=== PATIENT | female | born 1950 | race Caucasian/White ===

== ENCOUNTER → 2016-06-06 | Outpatient (CLI) | payer MEDICARE | LOC: RAD 07:52 | PROVIDERS: ATTEND Internal Medicine Gastroenterology | DX: D50.9 Iron deficiency anemia, unspecified (principal) | CPT/HCPCS: 74250 ==

== ENCOUNTER → 2017-07-05 | Outpatient (CLI) | payer MEDICARE, MEDICAID ==
--- NOTE | 2017-07-05 08:39 | RADIOLOGY REPORT (SQ) ---
EXAM DESCRIPTION: CT CHEST WITH; CT ABD/PELVIS WITH IV ORAL COMPLETED DATE/TIME: 07/05/2017 8:11 am REASON FOR STUDY: COLON CA (C18.9) C18.9 MALIGNANT NEOPLASM OF COLON, UNSPECIFIED COMPARISON: SMALL BOWEL SERIES 06/06/2016 CONTRAST TYPE AND DOSE: contrast/concentration: Isovue 370.00 mg/ml; Total Contrast Delivered: 72.0 ml; Total Saline Delivered: 66.0 ml RENAL FUNCTION: Creatinine 0.8 TECHNIQUE: CT scan of the chest performed using helical scanning technique with dynamic intravenous contrast injection. Images reviewed with lung, soft tissue and bone windows. Reconstructed coronal a nd sagittal MPR images reviewed. All images stored on PACS. CT scan of the abdomen and pelvis performed with intravenous and with oral contrastusing helical scan erin technique with dynamic intravenous contrast injection. Images reviewed with lung, soft tissue a nd bone windows. Reconstructed coronal and sagittal MPR images reviewed. Delayed images for evaluat ion of the urinary system also acquired and evaluated. All images stored on PACS. All CT scanners at this facility use dose modulation, iterative reconstruction, and/or weight based d osing when appropriate to reduce radiation dose to as low as reasonably achievable (ALARA). [facility]: Dose Right [facility]: CareDose [facility]: Dose Right [facility]: Teradose 4D [facility]: [employer] RADIATION DOSE: CT Rad equipment meets quality standard of care and radiation dose reduction techniq ues were employed. CTDIvol: 4.6 - 6.5 mGy. DLP: 812 mGy-cm. . LIMITATIONS: None. FINDINGS: CHEST: LUNGS AND PLEURA: Old surgical marisol along the superolateral aspect of the left major fissure. No pulmonary nodules. No acute infiltrates. No pleural effusion. No pneumothorax. HILAR AND MEDIASTINAL STRUCTURES: No identified masses or abnormal nodes. HEART AND VASCULAR STRUCTURES: No aneurysm or dissection. No central pulmonary emboli. No pericardi al effusion. HARDWARE: None. THYROID AND OTHER SOFT TISSUES: No masses. No adenopathy. BONES: No significant finding. OTHER: No other significant finding. ABDOMEN AND PELVIS: LIVER: Normal size. No masses. No dilated ducts. SPLEEN: Normal size. No focal lesions. PANCREAS: No masses. No significant calcifications. No adjacent inflammation or peripancreatic fluid collections. Pancreatic duct not dilated. GALLBLADDER: Surgically absent ADRENAL GLANDS: No significant masses or asymmetry. RIGHT KIDNEY AND URETER: No solid masses. No significant calcification. No hydronephrosis or hydroure ter. LEFT KIDNEY AND URETER: No solid masses. No significant calcification. No hydronephrosis or hydrouret er. AORTA AND VESSELS: No aneurysm. No dissection. Renal arteries, SMA, celiac without stenosis. RETROPERITONEUM: No retroperitoneal adenopathy, hemorrhage or masses. BOWEL AND PERITONEAL CAVITY: No masses or inflammatory changes. No free fluid or peritoneal masses. Post right hemicolectomy. No CT evidence of bowel obstruction. Few descending and sigmoid colon div erticuli without CT signs of acute diverticulitis APPENDIX: Surgically absent ABDOMINAL WALL: No masses. No hernias. PELVIS: No mass or free fluid. Normal bladder. Normal size female pelvic organs BONES: Lumbar fusion with hardware at L3-4 and L5-S1 OTHER: No other significant finding. IMPRESSION: No CT evidence of metastatic disease to the chest abdomen or pelvis given history of col on cancer TECHNICAL DOCUMENTATION: JOB ID: [id number] Quality ID # [id number]: Final reports with documentation of one or more dose reduction techniques (e.g., Au tomated exposure control, adjustment of the mA and/or kV according to patient size, use of iterative reconstruction technique) 2010 [employer]- All Rights Reserved
== END ==
LOC: RAD 07:22
PROVIDERS: ATTEND Physician Assistant Medical
DX: C18.9 Malignant neoplasm of colon, unspecified (principal)
CPT/HCPCS: 71260; 74177; 82565

== ENCOUNTER → 2018-06-12 | Outpatient (CLI) | payer MEDICARE, MEDICAID ==
--- NOTE | 2018-06-12 09:38 | RADIOLOGY REPORT (SQ) ---
EXAM DESCRIPTION: CT LUNG CANCER SCREENING COMPLETED DATE/TIME: 06/12/2018 8:46 am REASON FOR STUDY: PERSONAL HX OF NICOTINE DEPENDENCE (Z87.891) Z87.891 PERSONAL HISTORY OF NICOTINE DEPENDENCE Has the patient had a Chest CT scan within the past year? Was the patient offered tobacco cessation counseling? Was the patient engaged in shared decision making for this test? Does the patient have signs or symptoms of Lung Cancer? Is the patient a smoker? How many packs per year? How many years since quitting smoking? Patients age: COMPARISON: None. TECHNIQUE: Low Dose CT scan performed of the chest without intravenous contrast for purposes of scre ening for lung cancer. Images reviewed with lung, soft tissue and bone windows. Reconstructed coron al and sagittal MPR images reviewed. All images stored on PACS. All CT scanners at this facility use dose modulation, iterative reconstruction, and/or weight based d osing when appropriate to reduce radiation dose to as low as reasonably achievable (ALARA). [facility]: Dose Right [facility]: CareDose [facility]: Dose Right [facility]: Teradose 4D [facility]: [employer] RADIATION DOSE: CT Rad equipment meets quality standard of care and radiation dose reduction techniq ues were employed. CTDIvol: 1.9 mGy. DLP: 73 mGy-cm. mGy. . LIMITATIONS: None FINDINGS: LUNGS AND PLEURA: No masses or nodules. No pleural effusions or calcifications. No pne umothorax. Calcified granulomas along the left major fissure staple line. HILAR AND MEDIASTINAL STRUCTURES: No identified masses. No abnormal nodes. HEART AND VASCULAR STRUCTURES: No aortic aneurysm. No pericardial effusion. No cardiac devices. CORONARY ARTERY CALCIFICATIONS: Marked calcifications. UPPER ABDOMEN, THYROID, BONES, OTHER SOFT TISSUES: No significant findings. IMPRESSION: NO SIGNIFICANT FINDING IN THE LUNGS ON NON-CONTRASTED CHEST CT. OTHER FINDINGS ABOVE. LUNGRADS: LUNGRADS: 1 NEGATIVE. NO NODULES, OR DEFINITELY BENIGN NODULES MODIFIER: NONE RECOMMENDATION: Continue annual screening with LDCT in 12 months. COMMENT: CRITERIA: No lung nodules. Nodules with specific calcifications: Complete, central, popcorn, concentric rings and fat containin g nodules. TECHNICAL DOCUMENTATION: JOB ID: [id number] Quality ID # [id number]: Final reports with documentation of one or more dose reduction techniques (e.g., Au tomated exposure control, adjustment of the mA and/or kV according to patient size, use of iterative reconstruction technique) 2010 [facility] Radiology Reading location - IP/workstation name: [email or web address]
== END ==
LOC: RAD 08:31
PROVIDERS: ATTEND Internal Medicine
DX: Z12.2 Encounter for screening for malignant neoplasm of respiratory organs (principal); Z87.891 Personal history of nicotine dependence; J84.10 Pulmonary fibrosis, unspecified; I25.10 Atherosclerotic heart disease of native coronary artery without angina pectoris
CPT/HCPCS: G0297

== ENCOUNTER 2018-08-11 12:19 | Emergency (ER) | payer MEDICARE, MEDICAID ==
[2018-08-11] MEDS ORDERED: KETOROLAC TROMETHAMINE INJ/PF 30 MG/1 ML SDV IV ONE (14:23)
--- NOTE | 2018-08-11 15:13 | ER Document Report ---
Doctor's Note Notes: 08/11/18 15:11 I was asked to see this patient in consultation. In summary this is a 67-year-old female with multiple lower back surgeries with a history of back pain intermittently for around 20 years. Patient started to have some increased left lower back pain around 2 days ago. No trauma or falls. Some radiation tri n the left lower leg. No fevers, incontinence, vomiting, or weakness to the legs. Patient denies any and all abdominal pain. Patient did report this to her doctor who saw and evaluated her and supposedly the patient had an MRI of her lumbar spine within the last 48 hours. She does not know the results. On examination the patient is laying on her right side in no acute distress. Patient has no midline lower back tenderness, swelling, erythema, or induration. Patient has some tenderness to the left lower buttocks causing radiation down her leg. No swelling or erythema noted. 2+ patellar reflexes with excellent distal strength, capillary refill, and sensation. Patient has no abdominal tenderness to deep palpation of all 4 quadrants of the abdomen including the left lower quadrant. No palpable masses or abdominal bruits present. Given the above history and physical examination I do believe acute spinal cord compression, discitis, epidural abscess, AAA, all to be extremely unlikely. I do believe that the patient most likely has sciatic-like pain. Patient is not a diabetic. No adverse reaction to steroids. Patient does have a specialist for follow-up. We will attempt to find the patient's MRI and will most likely start the patient on a steroid course with strict return precautions and follow-up with the primary care physician and specialist.
--- NOTE | 2018-08-11 15:44 | ER Document Report ---
ED General - General Chief Complaint: Back Pain Stated Complaint: BACK/LEG PAIN Time Seen by Provider: 08/11/18 13:02 Primary Care Provider: RAJEEV BARLOW MD [Primary Care Provider] - Follow up as needed Notes: 67-year-old female with multiple lower back surgeries with a history of back pain intermittently for around 20 years. Patient started to have some increased left lower back pain around 2 days ago. No trauma or falls. Some radiation down the left lower leg. No fevers, incontinence, vomiting, or weakness to the legs. Patient denies any and all abdominal pain. Patient did report this to her doctor who saw and evaluated her and the patient had an MRI of her lumbar spine within the last 48 hours. She does not know the results. TRAVEL OUTSIDE OF THE [place] IN LAST 30 DAYS: No - Related Data Allergies/Adverse Reactions: codeine Allergy (Verified 08/11/18 12:19) Past Medical History - Social History Smoking Status: Unknown if Ever Smoked Family History: None Patient has suicidal ideation: No Patient has homicidal ideation: No - Past Medical History Cardiac Medical History: Reports: Hx Hypercholesterolemia Renal/ Medical History: Denies: Hx Peritoneal Dialysis Past Surgical History: Reports: Hx Appendectomy, Hx Cholecystectomy Review of Systems - Review of Systems Constitutional: See HPI EENT: No symptoms reported Cardiovascular: See HPI Respiratory: See HPI Gastrointestinal: No symptoms reported Genitourinary: No symptoms reported Female Genitourinary: No symptoms reported Musculoskeletal: See HPI Skin: No symptoms reported Hematologic/Lymphatic: No symptoms reported Neurological/Psychological: See HPI Physical Exam - Vital signs Vitals: Temp Pulse Resp BP Pulse Ox 97.9 F 69 16 104/56 L 98 08/11/18 12:25 08/11/18 12:25 08/11/18 12:25 08/11/18 12:25 08/11/18 12:25 - Notes Notes: PHYSICAL EXAMINATION: Reviewed vital signs and charting by RN GENERAL: Alert, interacts well. No acute distress. HEAD: Normocephalic, atraumatic. EYES: Pupils equal, round. Extraocular movements intact. NECK: Full range of motion. Supple. Trachea midline. LUNGS: Clear to auscultation bilaterally, no wheezes, rales, or rhonchi. No respiratory distress. HEART: Regular rate and rhythm. No murmur ABDOMEN: soft, non-tender. Non-distended. Bowel sounds present in all 4 quadrants. no McBurney's point tenderness, no Justice sign. EXTREMITIES: Moves all 4 extremities spontaneously. No edema, No cyanosis. BACK: no cervical, thoracic, lumbar midline tenderness. No saddle anesthesia, normal distal neurovascular exam. Some point tenderness along the left SI joint but unable to reproduce any radicular pain NEUROLOGICAL: Alert and oriented x3. Normal speech. PSYCH: Normal affect, normal mood. SKIN: Warm, dry, normal turgor. No rashes or lesions noted. Course - Re-evaluation Re-evalutation: 08/11/18 15:43 I do believe acute spinal cord compression, discitis, epidural abscess, or AAA. 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 Patient with no urinary retention, bowel incontinence, fevers or any infectious symptoms. Patient does have a specialist for follow-up. - Vital Signs Vital signs: Temp Pulse Resp BP Pulse Ox 97.9 F 69 16 104/56 L 98 08/11/18 12:25 08/11/18 12:25 08/11/18 12:25 08/11/18 12:25 08/11/18 12:25 Discharge - Discharge Clinical Impression: Lower back pain Qualifiers: Chronicity: acute Back pain laterality: left Sciatica presence: with sciatica Sciatica laterality: sciatica of left side Qualified Code(s): M54.42 - Lumbago with sciatica, left side Condition: Good Disposition: HOME, SELF-CARE Instructions: Ice Packs ([facility]), Low Back Pain ([facility]), Warm Packs ([facility]) Additional Instructions: You have been seen in the Emergency Department (ED) today for back pain. You should also purchase a local lidocaine cream such as "aspercreme with lidocaine" and use per bottle instructions to the affected area. Apply heat to the area as often as you are able. Continue to keep active and avoid prolonged periods of bed rest. Please follow up with your doctor as soon as possible regarding today's ED visit and your back pain. Return to the ED for worsening back pain, fever, weakness or numbness of either leg, or if you develop either (1) an inability to urinate or have bowel movements, or (2) loss of your ability to control your bathroom functions (if you start having "accidents"), or if you develop other new symptoms that concern you.concern you. Referrals: RAJEEV BARLOW MD [Primary Care Provider] - Follow up as needed
[2018-08-11] MEDS ORDERED: LIDOCAINE 5% (700 MG) TRANSDERMAL ADH..PATCH TP ONE (15:47)
[2018-08-11] MEDS ORDERED: PREDNISONE 20 MG TABLET PO ONE (15:48)
[2018-08-11 16:14] VITALS: BP 119/67
== END 2018-08-11 16:15 | disposition home or self-care (01) ==
LOC: ER 12:19
DX: M54.42 Lumbago with sciatica, left side (principal); Z98.890 Other specified postprocedural states; Z88.5 Allergy status to narcotic agent
CPT/HCPCS: 99283; 96374; J1885; A9270; J7512

== ENCOUNTER 2019-06-20 14:19 | Emergency (ER) | payer MEDICARE, MEDICAID ==
[2019-06-20] MEDS ORDERED: KETOROLAC TROMETHAMINE INJ/PF 30 MG/1 ML SDV IV ONE (15:09)
[2019-06-20] MEDS ORDERED: ONDANSETRON HCL INJ/PF 4 MG/2 ML SDV IV ONE (15:09)
[2019-06-20] MEDS ORDERED: NORMAL SALINE 1000 ML 1,000 ML IV ONE ×2 (15:10→19:41)
[2019-06-20 15:40] LABS: ABSOLUTE LYMPHOCYTES (AUTO) 1.9 10^3/uL (0.5-4.7); ABSOLUTE MONOCYTES (AUTO) 0.4 10^3/uL (0.1-1.4); ABSOLUTE NEUT (AUTO) 5.7 10^3/uL (1.7-8.2); BASOPHILS % (AUTO) 0.4 % (0-2); EOSINOPHILS % (AUTO) 0.4 % (0-6); HEMOGLOBIN 15.2 g/dL (12.0-15.5); LYMPHOCYTES % (AUTO) 23.2 % (13-45); MEAN CORPUSCULAR HEMOGLOBIN 31.5 pg (27.0-33.4); MEAN CORPUSCULAR HGB CONC 35.4 g/dL (32.0-36.0); MEAN CORPUSCULAR VOLUME 89 fl (80-97); MONOCYTES % (AUTO) 4.8 % (3-13); PLATELET COUNT 255 10^3/uL (150-450); RED BLOOD COUNT 4.83 10^6/uL (3.72-5.28); RED CELL DISTRIBUTION WIDTH 12.9 % (11.5-14.0); SEGMENTED NEUTROPHILS % (AUTO) 71.2 % (42-78); TOTAL CELLS COUNTED % (AUTO) 100 %
[2019-06-20 16:00] LABS: ALBUMIN 4.2 g/dL (3.5-5.0); ALKALINE PHOSPHATASE 87 U/L (38-126); ANION GAP 7 (5-19); ASPARTATE AMINO TRANSFERASE 37 U/L (14-36); BILIRUBIN,DIRECT 0.1 mg/dL (0.0-0.4); BILIRUBIN,TOTAL 0.5 mg/dL (0.2-1.3); BLOOD UREA NITROGEN 13 mg/dL (7-20); CALCIUM 9.6 mg/dL (8.4-10.2); CARBON DIOXIDE 25 mmol/L (22-30); CHLORIDE 104 mmol/L (98-107); GLUCOSE 83 mg/dL (75-110); POTASSIUM 4.1 mmol/L (3.6-5.0); TOTAL PROTEIN 8.3 g/dL (6.3-8.2)
[2019-06-20 16:33] LABS: APPEARANCE,URINE CLEAR; BILIRUBIN,URINE NEGATIVE (NEGATIVE); COLOR,URINE YELLOW; GLUCOSE, URINE NEGATIVE (NEGATIVE); KETONES,URINE TRACE mg/dL (NEGATIVE); LEUKOCYTE ESTERASE,URINE SMALL (NEGATIVE); NITRITE,URINE NEGATIVE (NEGATIVE); PROTEIN,URINE NEGATIVE (NEGATIVE); URINE SPECIFIC GRAVITY 1.009; UROBILINOGEN,URINE NEGATIVE mg/dL (<2.0)
--- NOTE | 2019-06-20 16:52 | ER Document Report ---
ED Medical Screen (RME) - General Mode of Arrival: Ambulatory Information source: Patient TRAVEL OUTSIDE OF THE [place] IN LAST 30 DAYS: No - Related Data Home Medications: Plavix 75mg daily. Altace 2.5mg daily. Zocor 40mg daily. Om eprazole 40mg daily. Aspirin 81mg daily. Vitamin d3 1000 iu daily. Ventolin 90 mcg as needed. Albuterol 1.5mg as needed. Percocet 5/325mg QID PRN. Gabapentin 600 mg QID PRN. Baclofen 10mg TID PRN <KAYLIN LEE - Last Filed: 06/20/19 15:11> <GOPI WILL JR - Last Filed: 06/20/19 18:26> - General Chief Complaint: Abdominal Pain Stated Complaint: WEAKNESS,HEADACHE,ABDOMINAL PAIN,VOMITING Time Seen by Provider: 06/20/19 15:03 Primary Care Provider: RAJEEV BARLOW MD [Primary Care Provider] - Follow up as needed Notes: 68-year-old female patient presenting to the emergency department with complaints of dizziness, abdominal pain, vomiting. Patient reports symptoms ongoing for the last 2 days. She denies any chest pain or shortness of breath. Reports history of diverticulitis. (KAYLIN LEE) - Related Data Allergies/Adverse Reactions: codeine Adverse Reaction (Verified 06/20/19 15:02) Past Medical History - Social History Chew tobacco use (# tins/day): No Frequency of alcohol use: None Drug Abuse: None - Past Medical History Cardiac Medical History: Reports: Hx Hypercholesterolemia Renal/ Medical History: Denies: Hx Peritoneal Dialysis Past Surgical History: Reports: Hx Appendectomy, Hx Cholecystectomy <KAYLIN LEE - Last Filed: 06/20/19 15:11> Physical Exam - Vital signs Vitals: Temp Pulse Resp BP Pulse Ox 98.3 F 81 16 120/60 96 06/20/19 14:32 06/20/19 14:32 06/20/19 14:32 06/20/19 14:32 06/20/19 14:32 Course - Laboratory Result Diagrams: 06/20/19 15:18 06/20/19 15:18 <GPOI WILL JR - Last Filed: 06/20/19 18:26> - Vital Signs Vital signs: Temp Pulse Resp BP Pulse Ox 98.3 F 81 16 120/60 96 06/20/19 14:32 06/20/19 14:32 06/20/19 14:32 06/20/19 14:32 06/20/19 14:32 - Laboratory Laboratory results interpreted by me: 06/20/19 06/20/19 15:18 15:18 Sodium 135.9 L AST 37 H Total Protein 8.3 H Urine Ketones TRACE H Urine Blood LARGE H Ur Leukocyte Esterase SMALL H Doctor's Discharge <KAYLIN LEE - Last Filed: 06/20/19 15:11> <GOPI WILL JR - Last Filed: 06/20/19 18:26> - Discharge Referrals: RAJEEV BARLOW MD [Primary Care Provider] - Follow up as needed
[2019-06-20] MEDS ORDERED: KETOROLAC TROMETHAMINE INJ/PF 30 MG/1 ML SDV ONE (18:12)
[2019-06-20] MEDS ORDERED: ONDANSETRON HCL INJ/PF 4 MG/2 ML SDV ONE (18:12)
--- NOTE | 2019-06-20 19:04 | ER Document Report ---
ED General - General Chief Complaint: Abdominal Pain Stated Complaint: WEAKNESS,HEADACHE,ABDOMINAL PAIN,VOMITING Time Seen by Provider: 06/20/19 15:03 Primary Care Provider: RAJEEV BARLOW MD [Primary Care Provider] - Follow up as needed Mode of Arrival: Ambulatory Notes: 68-year-old female with chief complaint of dizziness nausea vomiting for 2 days. Last had a flareup of diverticulitis 5 to 6 years ago. Patient has only had broth for p.o. intake over 24 hours. Patient has been taking Percocet for pain with out resolution of her bilateral lower quadrant abdominal pain. Her daughter also was a good spokesperson and patient is a good historian as well. Patient has not been eating any seedy foods and has been eating peanut butter sandwiches. He denies any trauma or diarrhea or constipation TRAVEL OUTSIDE OF THE [place] IN LAST 30 DAYS: No - HPI Onset: Other - 2 days Onset/Duration: Sudden Quality of pain: Achy Severity: Mild Pain Level: 1 Exacerbated by: Movement Similar symptoms previously: Yes Recently seen / treated by doctor: No - Related Data Allergies/Adverse Reactions: codeine Adverse Reaction (Verified 06/20/19 15:02) Home Medications: Plavix 75mg daily. Altace 2.5mg daily. Zocor 40mg daily. Omeprazole 40mg daily. Aspirin 81mg daily. Vitamin d3 1000 iu daily. Ventolin 90 mcg as needed. Albuterol 1.5mg as needed. Percocet 5/325mg QID PRN. Gabap entin 600 mg QID PRN. Baclofen 10mg TID PRN Past Medical History - General Information source: Patient - Social History Smoking Status: Current Every Day Smoker Chew tobacco use (# tins/day): No Frequency of alcohol use: None Drug Abuse: None Family History: None Patient has suicidal ideation: No Patient has homicidal ideation: No - Past Medical History Cardiac Medical History: Reports: Hx Hypercholesterolemia Renal/ Medical History: Denies: Hx Peritoneal Dialysis Past Surgical History: Reports: Hx Appendectomy, Hx Cholecystectomy Review of Systems - Review of Systems Constitutional: Malaise EENT: No symptoms reported Cardiovascular: No symptoms reported Respiratory: No symptoms reported Gastrointestinal: Abdominal pain, Nausea, Vomiting Female Genitourinary: No symptoms reported Musculoskeletal: No symptoms reported Skin: No symptoms reported Hematologic/Lymphatic: No symptoms reported Physical Exam - Vital signs Vitals: Temp Pulse Resp BP Pulse Ox 98.3 F 81 16 120/60 96 06/20/19 14:32 06/20/19 14:32 06/20/19 14:32 06/20/19 14:32 06/20/19 14:32 Interpretation: Normal - General General appearance: Alert In distress: Mild - General ectomorphic elderly appearing white female in no apparent distress laying in gurney after CT - HEENT Head: Normocephalic Eyes: Normal Conjunctiva: Normal Cornea: Normal Extraocular movements intact: Yes Eyelashes: Normal Pupils: PERRL Pharynx: Normal Neck: Normal - Respiratory Respiratory status: No respiratory distress Chest status: Nontender Breath sounds: Normal Chest palpation: Normal - Cardiovascular Rhythm: Regular Heart sounds: Normal auscultation Murmur: No Friction rub: No Rogelio's crunch: No - Abdominal Inspection: Normal Distension: No distension Bowel sounds: Hyperactive Tenderness: Tender - Right lower quadrant left lower quadrant abdomen on palpation Organomegaly: No organomegaly - Back Back: Normal - Extremities General upper extremity: Normal inspection General lower extremity: Normal inspection - Neurological Neuro grossly intact: Yes Cognition: Normal Orientation: AAOx4 Shad Coma Scale Eye Opening: Spontaneous Shad Coma Scale Verbal: Oriented Shad Coma Scale Motor: Obeys Commands [place] Coma Scale Total: 15 Speech: Normal Cranial nerves: Normal Cerebellar coordination: Normal - Psychological Associated symptoms: Normal affect - Skin Skin Temperature: Warm Skin Moisture: Dry Course - Vital Signs Vital signs: Temp Pulse Resp BP Pulse Ox 98.3 F 81 16 120/60 96 06/20/19 14:32 06/20/19 14:32 06/20/19 14:32 06/20/19 14:32 06/20/19 14:32 - Laboratory Result Diagrams: 06/20/19 15:18 06/20/19 15:18 Laboratory results interpreted by me: 06/20/19 06/20/19 15:18 15:18 Sodium 135.9 L AST 37 H Total Protein 8.3 H Urine Ketones TRACE H Urine Blood LARGE H Ur Leukocyte Esterase SMALL H - Diagnostic Test Radiology reviewed: Reports reviewed - No mention of diverticulitis but status post hemicolectomy otherwise within normal limits and postop back Critical Care Note - Critical Care Note Total time excluding time spent on procedures (mins): 60 Comments: Form patient and daughter of the findings of CT and labs. Prefers p.o. medicines rather than IV so she can get home to her who has dementia Discharge - Discharge Clinical Impression: Dehydration, Hemorrhagic cystitis Abdominal pain Qualifiers: Abdominal location: left lower quadrant Qualified Code(s): R10.32 - Left lower quadrant pain Condition: Fair Disposition: HOME, SELF-CARE Additional Instructions: Follow-up with personal doctor return to ER as needed take medicines as directed encourage fluids Prescriptions: Levofloxacin [Levaquin 750 mg Tablet] 750 mg PO DAILY #10 tablet Chlorzoxazone [Parafon Forte Dsc 500 Mg Tablet] 500 mg PO BID PRN #20 tablet PRN Reason: Referrals: RAJEEV BARLOW MD [Primary Care Provider] - Follow up as needed
--- NOTE | 2019-06-20 19:33 | RADIOLOGY REPORT (SQ) ---
EXAM DESCRIPTION: CT ABD/PELVIS WITH IV ONLY COMPLETED DATE/TIME: 06/20/2019 5:59 pm REASON FOR STUDY: pain in abd right and left lower quadrant pain. Previous appendectomy, cholecyste ctomy, and partial colectomy. COMPARISON: 07/05/2017 TECHNIQUE: CT scan of the abdomen and pelvis performed using helical scanning technique with dynamic intravenous contrast injection. No oral contrast. Images reviewed with lung, soft tissue, and bone windows. Reconstructed coronal and sagittal MPR images reviewed. Delayed images for evaluation of the urinary system also acquired. All images stored on PACS. All CT scanners at this facility use dose modulation, iterative reconstruction, and/or weight based d osing when appropriate to reduce radiation dose to as low as reasonably achievable (ALARA). [facility]: Dose Right [facility]: CareDose [facility]: Dose Right [facility]: Teradose 4D [facility]: [employer] CONTRAST TYPE AND DOSE: contrast/concentration: Isovue 350.00 mg/ml; Total Contrast Delivered: 69.0 ml; Total Saline Delivered: 65.0 ml RENAL FUNCTION: GFR > 60. RADIATION DOSE: CT Rad equipment meets quality standard of care and radiation dose reduction techniq ues were employed. CTDIvol: 5.3 - 7.0 mGy. DLP: 586 mGy-cm.. LIMITATIONS: None. FINDINGS: LOWER CHEST: No significant findings. No nodules or infiltrates. LIVER: Normal size. No masses. No dilated ducts. SPLEEN: Normal size. No focal lesions. PANCREAS: No masses. No significant calcifications. No adjacent inflammation or peripancreatic fluid collections. Pancreatic duct not dilated. GALLBLADDER: No identified stones by CT criteria. No inflammatory changes to suggest cholecystitis. ADRENAL GLANDS: No significant masses or asymmetry. RIGHT KIDNEY AND URETER: No solid masses. No significant calcifications. No hydronephrosis or hyd roureter. LEFT KIDNEY AND URETER: No solid masses. No significant calcifications. No hydronephrosis or hydr oureter. AORTA AND VESSELS: No aneurysm. No dissection. Renal arteries, SMA, celiac without stenosis. RETROPERITONEUM: No retroperitoneal adenopathy, hemorrhage or masses. BOWEL AND PERITONEAL CAVITY: Status post right hemicolectomy. No bowel obstruction. No bowel wall t hickening or significant inflammatory change. APPENDIX: Normal. PELVIS: No mass. No free fluid. Normal bladder. ABDOMINAL WALL: No masses. No hernias. BONES: Postoperative changes in the lumbar spine and sacrum. No suspicious bone lesions. OTHER: No other significant finding. IMPRESSION: 1. Status post right hemicolectomy. No evidence of bowel obstruction. 2. Postoperative changes in the lumbar spine. TECHNICAL DOCUMENTATION: JOB ID: [id number] Quality ID # [id number]: Final reports with documentation of one or more dose reduction techniques (e.g., Au tomated exposure control, adjustment of the mA and/or kV according to patient size, use of iterative reconstruction technique) 2010 [employer]- All Rights Reserved Reading location - IP/workstation name: [email or web address]
[2019-06-20] MEDS ORDERED: LEVOFLOXACIN 750 MG/D5W RTU 750 MG/150 ML RTUPB IV ONE (19:41)
[2019-06-20] MEDS ORDERED: DEXAMETHASONE SOD PHOS INJ 10 MG/1 ML VIAL IV ONE (19:41)
[2019-06-20] MEDS ORDERED: LEVOFLOXACIN 750 MG TABLET PO ONE (20:57)
[2019-06-20 21:12] VITALS: BP 121/74
== END 2019-06-20 21:12 | disposition home or self-care (01) ==
LOC: ER 14:19
DX: N30.90 Cystitis, unspecified without hematuria (principal); E86.0 Dehydration; R10.32 Left lower quadrant pain; R10.31 Right lower quadrant pain; R10.813 Right lower quadrant abdominal tenderness; R10.814 Left lower quadrant abdominal tenderness; R42 Dizziness and giddiness; R11.2 Nausea with vomiting, unspecified; R53.81 Other malaise; F17.200 Nicotine dependence, unspecified, uncomplicated; E78.00 Pure hypercholesterolemia, unspecified; Z79.899 Other long term (current) drug therapy; Z79.01 Long term (current) use of anticoagulants; Z79.82 Long term (current) use of aspirin; Z87.19 Personal history of other diseases of the digestive system; Z90.49 Acquired absence of other specified parts of digestive tract
CPT/HCPCS: 99285; 96361; 96375; 96365; 36415; 83690; 85025; 80053; 81001; 74177; J1885; J7030; J1100; A9270; J1956

== ENCOUNTER → 2019-10-24 | Outpatient (CLI) | payer MEDICARE, MEDICAID ==
--- NOTE | 2019-10-24 09:52 | RADIOLOGY REPORT (SQ) ---
EXAM DESCRIPTION: CT LUNG CANCER SCREENING IMAGES COMPLETED DATE/TIME: 10/24/2019 9:38 am REASON FOR STUDY: Z87.891 PERSONAL HISTORY OF NICOTINE DEPENDENCE Z87.891 PERSONAL HISTORY OF NICOT INE DEPENDENCE Has the patient had a Chest CT scan within the past year? N Was the patient offered tobacco cessation counseling? Y Was the patient engaged in shared decision making for this test? Y Does the patient have signs or symptoms of Lung Cancer? N Is the patient a smoker? Y How many pack years? 50 How many years since quitting smoking? 0 Patients age: 69 COMPARISON: 06/12/2018 and 07/05/2017. TECHNIQUE: Low Dose CT scan performed of the chest without intravenous contrast for purposes of scre ening for lung cancer. Images reviewed with lung, soft tissue and bone windows. Reconstructed coron al and sagittal MPR images reviewed. All images stored on PACS. All CT scanners at this facility use dose modulation, iterative reconstruction, and/or weight based d osing when appropriate to reduce radiation dose to as low as reasonably achievable (ALARA). [facility]: Dose Right [facility]: CareDose [facility]: Dose Right [facility]: Teradose 4D [facility]: LOSC Management RADIATION DOSE: CT Rad equipment meets quality standard of care and radiation dose reduction techniq ues were employed. CTDIvol: 1.9 mGy. DLP: 73 mGy-cm. mGy. . LIMITATIONS: None FINDINGS: LUNGS AND PLEURA: No masses or nodules. No pleural effusions or calcifications. No pne umothorax. Surgical changes in the left breast. Mild chronic scarring. HILAR AND MEDIASTINAL STRUCTURES: No identified masses. No abnormal nodes. HEART AND VASCULAR STRUCTURES: No aortic aneurysm. No pericardial effusion. No cardiac devices. CORONARY ARTERY CALCIFICATIONS: Marked calcifications. UPPER ABDOMEN, THYROID, BONES, OTHER SOFT TISSUES: No significant findings. IMPRESSION: NO SIGNIFICANT FINDING IN THE LUNGS ON NON-CONTRASTED CHEST CT. NO OTHER CLINICALLY SIGNIFICANT/POTENTIALLY CLINICALLY SIGNIFICANT FINDINGS LUNGRADS: LUNGRADS: 1 NEGATIVE. NO NODULES, OR DEFINITELY BENIGN NODULES MODIFIER: NONE RECOMMENDATION: Continue annual screening with LDCT in 12 months. COMMENT: CRITERIA: No lung nodules. Nodules with specific calcifications: Complete, central, popcorn, concentric rings and fat containin g nodules. TECHNICAL DOCUMENTATION: JOB ID: [id number] Quality ID # [id number]: Final reports with documentation of one or more dose reduction techniques (e.g., Au tomated exposure control, adjustment of the mA and/or kV according to patient size, use of iterative reconstruction technique) 2010 [facility] Radiology Reading location - IP/workstation name: [email or web address]
== END ==
LOC: RAD 09:16
PROVIDERS: ATTEND Physician Assistant Medical
DX: Z12.2 Encounter for screening for malignant neoplasm of respiratory organs (principal); Z09 Encounter for follow-up examination after completed treatment for conditions other than malignant neoplasm; Z87.891 Personal history of nicotine dependence; I25.10 Atherosclerotic heart disease of native coronary artery without angina pectoris
CPT/HCPCS: G0297

== ENCOUNTER → 2020-02-18 | Outpatient (CLI) | payer MEDICARE, MEDICAID ==
--- NOTE | 2020-02-18 08:48 | ST Modified Barium Swallow ---
Recommendation - Recommendations Recommendations: No swallowing deficits seen. 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 May benefit from pulmonology consult. 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 Patient reports having coughing spells during which she has significant difficulty breathing for approximately 1 year now, but worsening more recently. She reports that these can occur at any time, not exclusively related to meals or other PO intake. Patient reports that they start with a tickle in her throat, and can last from 1 minute to nearly 1 hour. Taking small sips of water can help alleviate symptoms. Patient reports that she has been seen by ENT, no structural abnormalities seen. Medications: omeprazole Allergies: codeine - Functional Status Prior Functional Status: INDEPENDENT: feeding - independent Current Functional Limitations: feeding - coughing episodes - Subjective Patient/caregiver goal(s): r/o struct. abnormality Cognitive-Linguistic Function: WNL Speech Intelligibility: WNL Current Nutritional Means: PO Current PO diet: Regular Current symptoms: Coughing Pain: Patient reports, 0/5 - Objective Assessment: Upright, Left Lateral - Food Trials Used Food trials used: Thin liquids, Pureed, Regular The patient: Was Able to Self Feed - Oral-Motor Skills Dentition: Partial Velo-pharyngeal function: Unremarkable Laryngeal Function: clear voicing - mild rough quality - Assessment Oral prep: Normal Labial closure: Adequate Leakage: None Mastication: Adequate Lingual Movement: Normal Oral stage: Normal for this Procedure - Pharyngeal Stage Initiation of Pharyngeal Stage Reflex: Normal Decreased laryngeal elevation: No Reduced pressure generation: No reduced tongue-based retraction: No Pre-swallow pooling in valleculae: None Pre-Swallow pooling in pyriforms: None Reduced Thyro-Hyoid approximation: No Reduced epiglottic excursion: No Reduced pharyngeal peristalsis/contraction: No Post-swallow residulas vallecular: None Post-Swallow residuals in pyriforms: None Post-Swallow Residuals: tongue-base - mild, cleared easily Reduced Cricopharyngeal opening: No - Fall Risk Assessment Medications/Conditions that increase fall risks include: Antidepressants, sedatives, anti-arrhythmic, diuretic, benzodiazipenes, neuroleptics. BP regulation problems, cardiac problems, balance or gait deficits, neurological problems. Is patient considered at risk for falls: no Fall Risk Actions Taken: No action needed - Behavioral Observations During evaluation process patient: was cooperative, provided medical history - Treatment / Educational Needs: Treatment/Education Needs: Treatment consisted of patient education on the role of the Speech Pathologist. Patient's plan of care and golas were communicated as well as scheduling and attendance policies. Recommendations for initial home program were shared. Patient demonstrated understanding and verbalized agreement. - Impression/Summary Laryngeal Penetration: No Tracheal Aspiration: no Patient presents with: Normal swallow at eval Risk of Aspiration: Minimal Evaluation and Findings: No oral or pharyngeal swallowing deficits seen, no airway compromise observed with swallowing. Patient does report symptoms that may be related to a vocal fold dysfunction (throat irritation leading to coughing, wheezing on inhalation, poor tolerance of fragrance). May wish to follow up with ENT and pulmonology. - Recommendations Solid diet recommendations: Regular Liquid Diet Modification: Thin Pt/Family education and followup with MD: Yes Dysphagia therapy with CLAIMS VICE PRESIDENT: no Reflux Precautions: Taught to Patient Recommended techniques: Fully Upright During Meal Information, Precautions and Recommendations: Patient (Written), Patient (Verbal), Family Member (Written), Family Member (Verbal) - Time Total Time: 30 - Plan of Care Strategies to optimize patient understanding include:: ongoing assessment of educational needs, implementation of educational strategies, and re-education. - - -: Thank you for the opportunity to work with this patient and his/her family. Should you have any questions about this patient's plan or progress, I can be reached at [phone].
--- NOTE | 2020-02-18 10:48 | RADIOLOGY REPORT (SQ) ---
EXAM DESCRIPTION: COOKIE SWALLOW IMAGES COMPLETED DATE/TIME: 02/18/2020 8:42 am REASON FOR STUDY: R13.10 DYSPHAGIA, UNSPECIFIED R13.10 DYSPHAGIA, UNSPECIFIED R93.3 ABNORMAL FINDI NGS ON DX IMAGING OF PRT DIGESTIVE TRACT COMPARISON: None. TECHNIQUE: Videofluoroscopic swallowing examination was performed in conjunction with speech patholo gy. Videofluoroscopic imaging was obtained and reviewed and these are the findings: RADIATION DOSE: Fluoro time 2.1 minutes 1 images saved to PACS. LIMITATIONS: None FINDINGS: The patient was brought into the fluoro room and placed upright on a modified barium swall ow chair. The patient was then given multiple consistencies mixed with barium to swallow under live fluoroscopic video guidance. According to the Speech Pathologist there was no penetration or aspirat ion. Please refer to the speech pathology report for further details. IMPRESSION: NO EVIDENCE OF PENETRATION OR ASPIRATION. PLEASE SEE SPEECH PATHOLOGIST REPORT FOR OTHER FINDINGS AND RECOMMENDATIONS. COMMENT: None Quality ID [id number]: Final reports for procedures using fluoroscopy that document radiation exposure bg jian, or exposure time and number of fluorographic images (if radiation exposure indices are not avail able) TECHNICAL DOCUMENTATION: JOB ID: [id number] 2010 [employer]- All Rights Reserved Reading location - IP/workstation name: [email or web address] [id number]
== END ==
LOC: RAD 07:38
PROVIDERS: ATTEND Physician Assistant
DX: R13.10 Dysphagia, unspecified (principal); R93.3 Abnormal findings on diagnostic imaging of other parts of digestive tract; R93.2 Abnormal findings on diagnostic imaging of liver and biliary tract
CPT/HCPCS: 74230

== ENCOUNTER → 2020-06-18 | Outpatient (CLI) | payer MEDICARE, MEDICAID ==
--- OUTSIDE RECORDS SUMMARY | 2020-06-18 07:38 | XMS REPORT ---
:1950 [facility] [address] [address] Care Team Providers Name Role Phone Marlene Villalta Attending Clinician Unavailable Allergies, Adverse Reactions, Alerts Allergy Allergy Status Severity Reaction(s) Onset Inactive Treating C omments Name Type Date Date Clinician Codeine Allergy Active Sulfate to Drug (Ingredient (Finding) (s): codeine) Meclizine Allergy Active HCl to Drug (Finding) Medications Ordered Filled Start Stop Current Ordering Indication Dosage Frequency Signature Comments Components Medication Medication Date Date Medication? Clinician (SIG) Name Name Vitamin 2020-0 No 1000 Vitamin B-12 1-04 B-12 00:00: 00 Vitamin 2020-1 No 1000 Vitamin B-12 2-07 B-12 00:00: 00 Vitamin 2020-1 No 1000 Vitamin B-12 1-09 B-12 00:00: 00 Vitamin 2020-1 No 1000 Vitamin B-12 0-12 B-12 00:00: 00 Influenza 2020-1 2020- No .5mL QIV 0-12 10-12 00:00: 00:00 00 :00 Vitamin 2020-0 No 1000 Vitamin B-12 9-14 B-12 00:00: 00 Vitamin 2020-0 No 1000 Vitamin B-12 8-14 B-12 00:00: 00 Vitamin 2020-0 No 1000 Vitamin B-12 7-16 B-12 00:00: 00 Vitamin 2020-0 No 1000 Vitamin B-12 6-18 B-12 00:00: 00 Vitamin 2020-0 No 1000 Vitamin B-12 5-21 B-12 00:00: 00 Vitamin 2020-0 No 1000 Vitamin B-12 2-27 B-12 00:00: 00 Vitamin 2020-0 No 1000 Vitamin B-12 1-30 B-12 00:00: 00 Vitamin 2020-0 No 1000 Vitamin B-12 1-02 B-12 00:00: 00 Vitamin 2019-1 No 1000 Vitamin B-12 2-05 B-12 00:00: 00 Vitamin 2019-1 No 1000 Vitamin B-12 1-08 B-12 00:00: 00 Vitamin 2019-1 No 1000 Vitamin B-12 0-10 B-12 00:00: 00 Vitamin 2019-0 No 1000 Vitamin B-12 8-21 B-12 00:00: 00 Vitamin 2019-0 No 1000 Vitamin B-12 7-24 B-12 00:00: 00 Injectafer 2019-0 No 750mg Injectafer 7-24 00:00: 00 Sodium 2019-0 No 100mL Sodium Chloride 7-24 Chloride 00:00: 00 Sodium 2019-0 No 250mL Sodium Chloride 7-10 Chloride 00:00: 00 Injectafer 2019-0 2019- No 750mg Injectafer 7-10 07-24 00:00: 00:00 00 :00 Vitamin 2019-0 No 1000 Vitamin B-12 6-26 B-12 00:00: 00 Vitamin 2019-0 No 1000 Vitamin B-12 5-29 B-12 00:00: 00 Vitamin 2019-0 No 1000 Vitamin B-12 5-01 B-12 00:00: 00 Vitamin 2019-0 No 1000 Vitamin B-12 4-03 B-12 00:00: 00 Vitamin 2019-0 No 1000 Vitamin B-12 3-06 B-12 00:00: 00 Vitamin 2019-0 No 1000 Vitamin B-12 2-06 B-12 00:00: 00 Vitamin 2019-0 No 1000 Vitamin B-12 1-09 B-12 00:00: 00 Vitamin 2018-1 No 1000 Vitamin B-12 2-12 B-12 00:00: 00 Vitamin 2018-1 No 1000 Vitamin B-12 1-14 B-12 00:00: 00 Vitamin 2018-1 No 1000 Vitamin B-12 0-16 B-12 00:00: 00 Vitamin 2018-0 No 1000 Vitamin B-12 8-21 B-12 00:00: 00 Vitamin 2018-0 No 1000 Vitamin B-12 7-24 B-12 00:00: 00 Vitamin 2018-0 No 1000 Vitamin B-12 6-26 B-12 00:00: 00 Vitamin 2018-0 No 1000 Vitamin B-12 5-29 B-12 00:00: 00 Vitamin 2018-0 No 1000 Vitamin B-12 4-30 B-12 00:00: 00 Vitamin 2018-0 No 1000 Vitamin B-12 4-02 B-12 00:00: 00 Cyanocobala 2018-0 No 1000 Cyanocobal min 3-02 butler 00:00: 00 Cyanocobala 2018-0 No 1000 Cyanocobal min 3- butler 00:00: 00 Cyanocobala 2018-0 No 1000 Cyanocobal min 2-28 butler 00:00: 00 Cyanocobala 2018-0 No 1000 Cyanocobal min 2-27 butler 00:00: 00 Cyanocobala 2018-0 No 1000 Cyanocobal min 2-26 butler 00:00: 00 Cyanocobala 2018-0 No 1000 Cyanocobal min 2-23 butler 00:00: 00 Cyanocobala 2018-0 No 1000 Cyanocobal min 2-22 butler 00:00: 00 Cyanocobala 2018-0 No 1000 Cyanocobal min 2-21 butler 00:00: 00 Vitamin 2018-0 2021- No 1000 Vitamin B-12 2-20 - B-12 00:00: 00:00 00 :00 Cyanocobala 2018-0 2018- No 1000 Cyanocobal min 2-19 03-02 butler 00:00: 00:00 00 :00 Iron 2017-0 No 400mg Iron Dextran 3-10 Dextran 00:00: 00 Sodium 2017-0 No 30mL Sodium Chloride 3-10 Chloride 00:00: 00 Iron 2017-0 No 400mg Iron Dextran 3-03 Dextran 00:00: 00 Sodium 2017-0 No 30mL Sodium Chloride 3-03 Chloride 00:00: 00 Iron 2017-0 No 400mg Iron Dextran 2-24 Dextran 00:00: 00 Sodium 2017-0 No 30mL Sodium Chloride 2-24 Chloride 00:00: 00 Sodium 2017-0 No 70mL Sodium Chloride 2-15 Chloride 00:00: 00 Sodium 2017-0 2019- No 100mL Chloride 2-15 07-24 00:00: 00:00 00 :00 Iron 2017-0 2017- No 375mg Iron Dextran 2-15 03-10 Dextran 00:00: 00:00 00 :00 Albuterol Yes 1 Sulfate Aspirin No 1 Cholecalcif No 1 esme Clopidogrel Yes 1 Bisulfate Gabapentin Yes 1 Omeprazole Yes 1 Oxycodone-A Yes 1 cetaminophe n Ramipril Yes 1 Simvastatin Yes 1 busPIRone No 1 HCl Aspirin Yes 1 busPIRone Yes 1 HCl Cholecalcif Yes 1 esme B-12 2019- No 1 05- 10:08 :34 TiZANidine 2018- No 1 HCl 11-21 10:29 :31 Simvastatin 2017- No 1 07-03 14:27 :36 TiZANidine 2017- No 1 HCl 07-03 14:27 :27 Advair 2016- No 1 Diskus 06-21 10:33 :31 Albuterol 2016- No 2 Sulfate 06-21 10:33 :38 Gabapentin 2017- No 1 06-21 10:33 :43 Problems Condition Condition Condition Status Onset Resolution Last Treatin g Comments Name Details Category Date Date Treatment Clinician Date Patient Patient Diagnosis active 2019-05 encounter encounter 0-12 status status 00:00: 00 Cobalamin Cobalamin Diagnosis active deficiency deficiency 07-17 00:00: 00 Tobacco Tobacco Diagnosis active user user 07-07 00:00: 00 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6000 % 22.400 0-43.6000 MID% (test code = MID%) 5.4000 % 1.2000-11.2000 Neutrophils % (test code = Neutrophils %) 66.0000 % 48.900 0-69.9000 Lymphocytes (test code = Lymphocytes) 2.0000 1.2000-3.2 000 MID (test code = MID) 0.5000 0.1000-1.1000 Neutrophils (test code = Neutrophils) 4.7000 1.5000-6.7 000 RBC (test code = RBC) 4.7500 3.7000-4.9000 HGB (test code = HGB) 14.2000 g/dL 11.2000-18.0000 HCT (test code = HCT) 41.8000 % 34.0000-44.0000 MCV (test code = MCV) 88.0000 fL 80.0000-94.0000 MCH (test code = MCH) 29.9000 pg 27.0000-34.0000 MCHC (test code = MCHC) 34.0000 g/dL 31.5000-36.0000 RDW (test code = RDW) 14.3000 11.0000-18.0000 PLT (test code = PLT) 262.0000 140.0000-440.0000 MPV (test code = MPV) 7.5000 fL 6.8000-10.6000 [id number] 11:49:00 Test Item Value Reference Range Comments Creatinine (test code = Creatinine) 0.7800 mg/dL 0.5700-1.000 0 Cr Clearance (Est) (test code = Cr 58.9200 75.0000-115.0 000 Clearance (Est)) Glucose (test code = Glucose) 68.0000 mg/dL 65.0000-99.0000 BUN (test code = BUN) 9.0000 mg/dL 8.0000-27.0000 eGFR Pbo-Bwhgpul-Lmnnrvhz (test code = 78.0000 eGFR Jtg-Czrlpyp-Njcbzkgb) eGFR -Niuean (test code = eGFR 90.0000 -Niuean) BUN/Creat Ratio (test code = BUN/Creat 12.0000 12.0000-2 8.0000 Ratio) Sodium (test code = Sodium) 138.0000 mmol/L 134.0000-144.0000 Potassium (test code = Potassium) 4.2000 mmol/L 3.5000-5.2000 Chloride (test code = Chloride) 100.0000 mmol/L 96.0000-106.0000 CO2 (test code = CO2) 25.0000 mmol/L 20.0000-29.0000 Calcium (test code = Calcium) 8.9000 mg/dL 8.7000-10.3000 Protein, Total (test code = Protein, 7.4000 g/dL 6.0000-8.50 00 Total) Albumin (test code = Albumin) 4.2000 g/dL 3.8000-4.8000 Globulin (test code = Globulin) 3.2000 g/dL 1.5000-4.5000 A/G Ratio (test code = A/G Ratio) 1.3000 1.2000-2.2000 Bilirubin, Total (test code = Bilirubin, 0.2000 mg/dL 0.0000- 1.2000 Total) Alkaline Phosphatase (test code = Alkaline 73.0000 39.00 00-117.0000 Phosphatase) AST (SGOT) (test code = AST (SGOT)) 20.0000 0.0000-40.00 00 ALT (SGPT) (test code = ALT (SGPT)) 16.0000 0.0000-32.00 00 Iron, Total (test code = Iron, Total) 120.0000 27.0000-13 9.0000 TIBC (test code = TIBC) 281.0000 250.0000-450.0000 UIBC (test code = UIBC) 161.0000 118.0000-369.0000 % Iron Saturation (test code = % Iron 43.0000 % 15.0000-55 .0000 Saturation) Ferritin (test code = Ferritin) 388.0000 ng/mL 15.0000-150.0000 [id number] 11:49:00 Test Item Value Reference Range Comments CEA (test code = CEA) 1.5000 ng/mL 0.0000-4.7000 [id number] 10:17:00 Test Item Value Reference Range Comments WBC (test code = WBC) 6.9000 4.0000-10.0000 Lymphocytes % (test code = Lymphocytes %) 23.9000 % 22.400 0-43.6000 MID% (test code = MID%) 6.5000 % 1.1999-.1999 Neutrophils % (test code = Neutrophils %) 69.6000 % 48.900 0-69.9000 Lymphocytes (test code = Lymphocytes) 1.6000 1.2000-3.2 000 MID (test code = MID) 0.5000 0.1000-1.1000 Neutrophils (test code = Neutrophils) 4.8000 1.5000-6.7 000 RBC (test code = RBC) 5.0100 3.7000-4.9000 HGB (test code = HGB) 15.1000 g/dL 11.2000-18.0000 HCT (test code = HCT) 44.4000 % 34.0000-44.0000 MCV (test code = MCV) 88.6000 fL 80.0000-94.0000 MCH (test code = MCH) 30.1000 pg 27.0000-34.0000 MCHC (test code = MCHC) 33.9000 g/dL 31.5000-36.0000 RDW (test code = RDW) 14.1999 11.0000-18.0000 PLT (test code = PLT) 269.0000 140.0000-440.0000 MPV (test code = MPV) 7.6000 fL 6.8000-10.6000 SURGICAL PATH [id number] 00:00:00 Test Item Value Reference Range Comments Clinical History (test code Imaging of gastrointestinal = 06785-9) tract abnormal Dysphagia CT of biliary tract abnormal Erythema in the antrum compatible with gastritis. (Biopsy) Nature of Specimen (test Specimen Source:Stomach, code = 34281-5) Specimen Obtained Gross Pathology (test code = Received in a specimen container [id number]) labeled with the patient's name and "stomach antrum and body biopsy" is/are 3 pieces of cummings-pink tissue measuring 1-2 mm. The specimen is submitted entirely. Microscopic Pathology (test code = 85845-0) Final Diagnosis (test code = Stomach;MILD CHRONIC INACTIVE 50201-0) GASTRITIS. Negative for Helicobacter pylori organisms on immunostain.Diagnosis Note: [id number] 09:40:00 Test Item Value Reference Range Comments WBC (test code = WBC) 7.4000 4.0000-10.0000 Lymphocytes % (test code = Lymphocytes %) 22.4000 % 22.400 0-43.6000 MID% (test code = MID%) 5.3000 % 1.2000-11.2000 Neutrophils % (test code = Neutrophils %) 72.3000 % 48.900 0-69.9000 Lymphocytes (test code = Lymphocytes) 1.6000 1.2000-3.2 000 MID (test code = MID) 0.4000 0.1000-1.1000 Neutrophils (test code = Neutrophils) 5.4000 1.5000-6.7 000 RBC (test code = RBC) 4.9000 3.7000-4.9000 HGB (test code = HGB) 14.2000 g/dL 11.2000-18.0000 HCT (test code = HCT) 43.2000 % 34.0000-44.0000 MCV (test code = MCV) 88.1000 fL 80.0000-94.0000 MCH (test code = MCH) 29.1000 pg 27.0000-34.0000 MCHC (test code = MCHC) 33.0000 g/dL 31.5000-36.0000 RDW (test code = RDW) 14.1000 11.0000-18.0000 PLT (test code = PLT) 240.0000 140.0000-440.0000 MPV (test code = MPV) 7.8000 fL 6.8000-10.6000 [id number] 10:06:00 Test Item Value Reference Range Comments WBC (test code = WBC) 6.1000 4.0000-10.0000 Lymphocytes % (test code = Lymphocytes %) 24.8000 % 22.400 0-43.6000 MID% (test code = MID%) 6.8000 % - Neutrophils % (test code = Neutrophils %) 68.4000 % 48.900 0-69.9000 Lymphocytes (test code = Lymphocytes) 1.5000 1.2000-3.2 000 MID (test code = MID) 0.4000 0.1000-1.1000 Neutrophils (test code = Neutrophils) 4.2000 1.5000-6.7 000 RBC (test code = RBC) 4.3600 3.7000-4.9000 HGB (test code = HGB) 13.0000 g/dL .1999-18.0000 HCT (test code = HCT) 38.6000 % 34.0000-44.0000 MCV (test code = MCV) 88.5000 fL 80.0000-94.0000 MCH (test code = MCH) 29.9000 pg 27.0000-34.0000 MCHC (test code = MCHC) 33.7000 g/dL 31.5000-36.0000 RDW (test code = RDW) 14.1999 11.0000-18.0000 PLT (test code = PLT) 208.0000 140.0000-440.0000 MPV (test code = MPV) 8.0000 fL 6.8000-10.6000 [id number] 08:38:00 Test Item Value Reference Range Comments WBC (test code = WBC) 6.1000 4.0000-10.0000 Lymphocytes % (test code = Lymphocytes %) 29.9000 % 22.400 0-43.6000 MID% (test code = MID%) 11.8000 % - Neutrophils % (test code = Neutrophils %) 58.3000 % 48.900 0-69.9000 Lymphocytes (test code = Lymphocytes) 1.8000 1.2000-3.2 000 MID (test code = MID) 0.8000 0.1000-1.1000 Neutrophils (test code = Neutrophils) 3.5000 1.5000-6.7 000 RBC (test code = RBC) 4.5300 3.7000-4.9000 HGB (test code = HGB) 13.1000 g/dL 11.2000-18.0000 HCT (test code = HCT) 40.4000 % 34.0000-44.0000 MCV (test code = MCV) 89.3000 fL 80.0000-94.0000 MCH (test code = MCH) 29.0000 pg 27.0000-34.0000 MCHC (test code = MCHC) 32.4000 g/dL 31.5000-36.0000 RDW (test code = RDW) 14.7000 11.0000-18.0000 PLT (test code = PLT) 202.0000 140.0000-440.0000 MPV (test code = MPV) 8.4000 fL 6.8000-10.6000 [id number] 09:28:00 Test Item Value Reference Range Comments WBC (test code = WBC) 6.7000 4.0000-10.0000 Lymphocytes % (test code = Lymphocytes %) 25.5000 % 22.400 0-43.6000 MID% (test code = MID%) 5.9000 % 1.2000-11.2000 Neutrophils % (test code = Neutrophils %) 68.6000 % 48.900 0-69.9000 Lymphocytes (test code = Lymphocytes) 1.7000 1.2000-3.2 000 MID (test code = MID) 0.4000 0.1000-1.1000 Neutrophils (test code = Neutrophils) 4.6000 1.5000-6.7 000 RBC (test code = RBC) 4.9100 3.7000-4.9000 HGB (test code = HGB) 14.8000 g/dL 11.2000-18.0000 HCT (test code = HCT) 42.9000 % 34.0000-44.0000 MCV (test code = MCV) 87.3000 fL 80.0000-94.0000 MCH (test code = MCH) 30.1000 pg 27.0000-34.0000 MCHC (test code = MCHC) 34.5000 g/dL 31.5000-36.0000 RDW (test code = RDW) 13.4000 11.0000-18.0000 PLT (test code = PLT) 220.0000 140.0000-440.0000 MPV (test code = MPV) 8.0000 fL 6.8000-10.6000 [id number] 09:09:00 Test Item Value Reference Range Comments WBC (test code = WBC) 7.0000 4.0000-10.0000 Lymphocytes % (test code = Lymphocytes %) 33.8000 % 22.400 0-43.6000 MID% (test code = MID%) 7.8000 % 1.2000-11.2000 Neutrophils % (test code = Neutrophils %) 58.4000 % 48.900 0-69.9000 Lymphocytes (test code = Lymphocytes) 2.3000 1.2000-3.2 000 MID (test code = MID) 0.7000 0.1000-1.1000 Neutrophils (test code = Neutrophils) 4.0000 1.5000-6.7 000 RBC (test code = RBC) 4.8800 3.7000-4.9000 HGB (test code = HGB) 14.9000 g/dL 11.2000-18.0000 HCT (test code = HCT) 44.4000 % 34.0000-44.0000 MCV (test code = MCV) 90.9000 fL 80.0000-94.0000 MCH (test code = MCH) 30.6000 pg 27.0000-34.0000 MCHC (test code = MCHC) 33.6000 g/dL 31.5000-36.0000 RDW (test code = RDW) 13.9000 11.0000-18.0000 PLT (test code = PLT) 199.0000 140.0000-440.0000 MPV (test code = MPV) 7.9000 fL 6.8000-10.6000 Iron, [id number] 12:37:00 Test Item Value Reference Range Comments Iron, Total (test code = Iron, Total) 110.0000 27.0000-13 9.0000 TIBC (test code = TIBC) 281.0000 250.0000-450.0000 UIBC (test code = UIBC) 171.0000 118.0000-369.0000 % Iron Saturation (test code = % Iron 39.0000 % 15.0000-55 .0000 Saturation) Vitamin B12 (test code = Vitamin B12) 694.0000 pg/mL 232.0000-1 245.0000 Folate (test code = Folate) 8.4000 ng/mL Ferritin (test code = Ferritin) 355.0000 ng/mL 15.0000-150.0000 [id number] 12:37:00 Test Item Value Reference Range Comments CEA (test code = CEA) 1.4000 ng/mL 0.0000-4.7000 [id number] 09:38:00 Test Item Value Reference Range Comments WBC (test code = WBC) 6.7000 4.0000-10.0000 Lymphocytes % (test code = Lymphocytes %) 23.3000 % 22.400 0-43.6000 MID% (test code = MID%) 5.7000 % 1.2000-11.2000 Neutrophils % (test code = Neutrophils %) 71.0000 % 48.900 0-69.9000 Lymphocytes (test code = Lymphocytes) 1.5000 1.2000-3.2 000 MID (test code = MID) 0.5000 0.1000-1.1000 Neutrophils (test code = Neutrophils) 4.7000 1.5000-6.7 000 RBC (test code = RBC) 5.1500 3.7000-4.9000 HGB (test code = HGB) 15.7000 g/dL 11.2000-18.0000 HCT (test code = HCT) 47.5000 % 34.0000-44.0000 MCV (test code = MCV) 92.1000 fL 80.0000-94.0000 MCH (test code = MCH) 30.4000 pg 27.0000-34.0000 MCHC (test code = MCHC) 33.0000 g/dL 31.5000-36.0000 RDW (test code = RDW) 14.4000 11.0000-18.0000 PLT (test code = PLT) 272.0000 140.0000-440.0000 MPV (test code = MPV) 7.8000 fL 6.8000-10.6000 [id number] 09:38:00 Test Item Value Reference Range Comments Creatinine (test code = Creatinine) 0.6000 mg/dL 0.5000-1.200 0 Cr Clearance (Est) (test code = Cr 77.2400 75.0000-115.0 000 Clearance (Est)) Glucose (test code = Glucose) 60.0000 mg/dL 70.0000-118.0000 BUN (test code = BUN) 11.0000 mg/dL 7.0000-22.0000 Sodium (test code = Sodium) 136.0000 mmol/L 128.0000-145.0000 Potassium (test code = Potassium) 3.8000 mmol/L 3.6000-5.1000 Chloride (test code = Chloride) 105.0000 mmol/L 96.0000-108.0000 CO2 (test code = CO2) 31.0000 mmol/L 18.0000-33.0000 Calcium (test code = Calcium) 8.6600 mg/dL 8.0000-10.3000 Alkaline Phosphatase (test code = Alkaline 68.0000 42.00 00-141.0000 Phosphatase) ALT (SGPT) (test code = ALT (SGPT)) 17.0000 10.0000-47.0 000 AST (SGOT) (test code = AST (SGOT)) 21.0000 11.0000-37.0 000 Bilirubin, Total (test code = Bilirubin, 0.3000 mg/dL 0.0000- 1.6000 Total) Albumin (test code = Albumin) 4.1000 g/dL 3.5000-5.5000 Protein, Total (test code = Protein, 7.1000 g/dL 6.4000-8.10 00 Total) eGFR -[place]uean (test code = eGFR 120.0000 60.0000- 200.0000 -[place]uean) eGFR Ekj-Czhevqv-Qvxopfzs (test code = 99.0000 60.0000-2 00.0000 eGFR Awa-Btuceqo-Djcxlubq) [id number] 09:34:00 Test Item Value Reference Range Comments WBC (test code = WBC) 6.5000 4.0000-10.0000 Lymphocytes % (test code = Lymphocytes %) 26.2000 % 22.400 0-43.6000 MID% (test code = MID%) 6.1000 % 1.2000-11.2000 Neutrophils % (test code = Neutrophils %) 67.7000 % 48.900 0-69.9000 Lymphocytes (test code = Lymphocytes) 1.7000 1.2000-3.2 000 MID (test code = MID) 0.4000 0.1000-1.1000 Neutrophils (test code = Neutrophils) 4.4000 1.5000-6.7 000 RBC (test code = RBC) 5.1700 3.7000-4.9000 HGB (test code = HGB) 15.0000 g/dL 11.2000-18.0000 HCT (test code = HCT) 46.8000 % 34.0000-44.0000 MCV (test code = MCV) 90.5000 fL 80.0000-94.0000 MCH (test code = MCH) 29.1000 pg 27.0000-34.0000 MCHC (test code = MCHC) 32.1000 g/dL 31.5000-36.0000 RDW (test code = RDW) 13.9000 11.0000-18.0000 PLT (test code = PLT) 248.0000 140.0000-440.0000 MPV (test code = MPV) 7.8000 fL 6.8000-10.6000 [id number] 09:30:00 Test Item Value Reference Range Comments WBC (test code = WBC) 6.7000 4.0000-10.0000 Lymphocytes % (test code = Lymphocytes %) 22.6000 % 22.400 0-43.6000 MID% (test code = MID%) 5.5000 % 1.2000-11.2000 Neutrophils % (test code = Neutrophils %) 71.9000 % 48.900 0-69.9000 Lymphocytes (test code = Lymphocytes) 1.5000 1.2000-3.2 000 MID (test code = MID) 0.4000 0.1000-1.1000 Neutrophils (test code = Neutrophils) 4.8000 1.5000-6.7 000 RBC (test code = RBC) 5.0000 3.7000-4.9000 HGB (test code = HGB) 14.8000 g/dL 11.2000-18.0000 HCT (test code = HCT) 45.2000 % 34.0000-44.0000 MCV (test code = MCV) 90.5000 fL 80.0000-94.0000 MCH (test code = MCH) 29.6000 pg 27.0000-34.0000 MCHC (test code = MCHC) 32.7000 g/dL 31.5000-36.0000 RDW (test code = RDW) 14.0000 11.0000-18.0000 PLT (test code = PLT) 209.0000 140.0000-440.0000 MPV (test code = MPV) 7.8000 fL 6.8000-10.6000 [id number] 09:21:00 Test Item Value Reference Range Comments WBC (test code = WBC) 7.0000 4.0000-10.0000 Lymphocytes % (test code = Lymphocytes %) 34.8000 % 22.400 0-43.6000 MID% (test code = MID%) 7.2000 % 1.2000-11.2000 Neutrophils % (test code = Neutrophils %) 58.0000 % 48.900 0-69.9000 Lymphocytes (test code = Lymphocytes) 2.4000 1.2000-3.2 000 MID (test code = MID) 0.5000 0.1000-1.1000 Neutrophils (test code = Neutrophils) 4.1000 1.5000-6.7 000 RBC (test code = RBC) 4.8400 3.7000-4.9000 HGB (test code = HGB) 13.8000 g/dL 11.2000-18.0000 HCT (test code = HCT) 43.7000 % 34.0000-44.0000 MCV (test code = MCV) 90.2000 fL 80.0000-94.0000 MCH (test code = MCH) 28.5000 pg 27.0000-34.0000 MCHC (test code = MCHC) 31.6000 g/dL 31.5000-36.0000 RDW (test code = RDW) 13.6000 11.0000-18.0000 PLT (test code = PLT) 220.0000 140.0000-440.0000 MPV (test code = MPV) 8.2000 fL 6.8000-10.6000 [id number] 12:40:00 Test Item Value Reference Range Comments Creatinine (test code = Creatinine) 0.6700 mg/dL 0.5700-1.000 0 Cr Clearance (Est) (test code = Cr 75.3800 75.0000-115.0 000 Clearance (Est)) Glucose (test code = Glucose) 67.0000 mg/dL 65.0000-99.0000 BUN (test code = BUN) 13.0000 mg/dL 8.0000-27.0000 eGFR Skf-Uxgltdg-Igqazgvh (test code = 91.0000 eGFR Erv-Cgeqctf-Cbmiuvig) eGFR -[place]uean (test code = eGFR 105.0000 -[place]) BUN/Creat Ratio (test code = BUN/Creat 19.0000 12.0000-2 8.0000 Ratio) Sodium (test code = Sodium) 137.0000 mmol/L 134.0000-144.0000 Potassium (test code = Potassium) 4.4000 mmol/L 3.5000-5.2000 Chloride (test code = Chloride) 100.0000 mmol/L 96.0000-106.0000 CO2 (test code = CO2) 23.0000 mmol/L 20.0000-29.0000 Calcium (test code = Calcium) 8.9000 mg/dL 8.7000-10.3000 Protein, Total (test code = Protein, 7.4000 g/dL 6.0000-8.50 00 Total) Albumin (test code = Albumin) 4.1000 g/dL 3.6000-4.8000 Globulin (test code = Globulin) 3.3000 g/dL 1.5000-4.5000 A/G Ratio (test code = A/G Ratio) 1.1999 1.1999-2.2000 Bilirubin, Total (test code = Bilirubin, 0.3000 mg/dL 0.0000- 1.2000 Total) Alkaline Phosphatase (test code = Alkaline 92.0000 39.00 00-117.0000 Phosphatase) AST (SGOT) (test code = AST (SGOT)) 40.0000 0.0000-40.00 00 ALT (SGPT) (test code = ALT (SGPT)) 38.0000 0.0000-32.00 00 Iron, Total (test code = Iron, Total) 111.0000 27.0000-13 9.0000 TIBC (test code = TIBC) 285.0000 250.0000-450.0000 UIBC (test code = UIBC) 174.0000 118.0000-369.0000 % Iron Saturation (test code = % Iron 39.0000 % 15.0000-55 .0000 Saturation) Ferritin (test code = Ferritin) 392.0000 ng/mL 15.0000-150.0000 [id number] 12:40:00 Test Item Value Reference Range Comments CEA (test code = CEA) 1.4000 ng/mL 0.0000-4.7000 [id number] 10:58:00 Test Item Value Reference Range Comments WBC (test code = WBC) 5.7000 4.0000-10.0000 Lymphocytes % (test code = Lymphocytes %) 28.8000 % 22.400 0-43.6000 MID% (test code = MID%) 6.4000 % 1.2000-11.2000 Neutrophils % (test code = Neutrophils %) 64.8000 % 48.900 0-69.9000 Lymphocytes (test code = Lymphocytes) 1.6000 1.2000-3.2 000 MID (test code = MID) 0.4000 0.1000-1.1000 Neutrophils (test code = Neutrophils) 3.7000 1.5000-6.7 000 RBC (test code = RBC) 4.9400 3.7000-4.9000 HGB (test code = HGB) 14.5000 g/dL 11.2000-18.0000 HCT (test code = HCT) 45.2000 % 34.0000-44.0000 MCV (test code = MCV) 91.4000 fL 80.0000-94.0000 MCH (test code = MCH) 29.3000 pg 27.0000-34.0000 MCHC (test code = MCHC) 32.0000 g/dL 31.5000-36.0000 RDW (test code = RDW) 14.3000 11.0000-18.0000 PLT (test code = PLT) 280.0000 140.0000-440.0000 MPV (test code = MPV) 7.8000 fL 6.8000-10.6000 [id number] 11:15:00 Test Item Value Reference Range Comments WBC (test code = WBC) 7.7000 4.0000-10.0000 Lymphocytes % (test code = Lymphocytes %) 33.3000 % 22.400 0-43.6000 MID% (test code = MID%) 7.2000 % 1.2000-11.2000 Neutrophils % (test code = Neutrophils %) 59.5000 % 48.900 0-69.9000 Lymphocytes (test code = Lymphocytes) 2.5000 1.2000-3.2 000 MID (test code = MID) 0.7000 0.1000-1.1000 Neutrophils (test code = Neutrophils) 4.5000 1.5000-6.7 000 RBC (test code = RBC) 5.4200 3.7000-4.9000 HGB (test code = HGB) 15.1000 g/dL 11.2000-18.0000 HCT (test code = HCT) 49.0000 % 34.0000-44.0000 MCV (test code = MCV) 90.4000 fL 80.0000-94.0000 MCH (test code = MCH) 27.8000 pg 27.0000-34.0000 MCHC (test code = MCHC) 30.8000 g/dL 31.5000-36.0000 RDW (test code = RDW) 14.1000 11.0000-18.0000 PLT (test code = PLT) 266.0000 140.0000-440.0000 MPV (test code = MPV) 7.8000 fL 6.8000-10.6000 [id number] 14:11:00 Test Item Value Reference Range Comments WBC (test code = WBC) 6.6000 4.0000-10.0000 Lymphocytes % (test code = Lymphocytes %) 31.0000 % 22.400 0-43.6000 MID% (test code = MID%) 7.9000 % 1.2000-11.1999 Neutrophils % (test code = Neutrophils %) 61.1000 % 48.900 0-69.9000 Lymphocytes (test code = Lymphocytes) 2.0000 1.2000-3.2 000 MID (test code = MID) 0.6000 0.1000-1.1000 Neutrophils (test code = Neutrophils) 4.0000 1.5000-6.7 000 RBC (test code = RBC) 5.1000 3.7000-4.9000 HGB (test code = HGB) 14.5000 g/dL 11.2000-18.0000 HCT (test code = HCT) 45.5000 % 34.0000-44.0000 MCV (test code = MCV) 89.2000 fL 80.0000-94.0000 MCH (test code = MCH) 28.4000 pg 27.0000-34.0000 MCHC (test code = MCHC) 31.9000 g/dL 31.5000-36.0000 RDW (test code = RDW) 14.7000 11.0000-18.0000 PLT (test code = PLT) 239.0000 140.0000-440.0000 MPV (test code = MPV) 7.9000 fL 6.8000-10.6000 [id number] 10:44:00 Test Item Value Reference Range Comments WBC (test code = WBC) 6.4000 4.0000-10.0000 Lymphocytes % (test code = Lymphocytes %) 23.6000 % 22.400 0-43.6000 MID% (test code = MID%) 5.5000 % 1.2000-11.1999 Neutrophils % (test code = Neutrophils %) 70.9000 % 48.900 0-69.9000 Lymphocytes (test code = Lymphocytes) 1.5000 1.2000-3.2 000 MID (test code = MID) 0.4000 0.1000-1.1000 Neutrophils (test code = Neutrophils) 4.5000 1.5000-6.7 000 RBC (test code = RBC) 5.0900 3.7000-4.9000 HGB (test code = HGB) 15.2000 g/dL 11.2000-18.0000 HCT (test code = HCT) 47.3000 % 34.0000-44.0000 MCV (test code = MCV) 92.8000 fL 80.0000-94.0000 MCH (test code = MCH) 29.9000 pg 27.0000-34.0000 MCHC (test code = MCHC) 32.2000 g/dL 31.5000-36.0000 RDW (test code = RDW) 15.2000 11.0000-18.0000 PLT (test code = PLT) 194.0000 140.0000-440.0000 MPV (test code = MPV) 7.9000 fL 6.8000-10.6000 [id number] 10:34:00 Test Item Value Reference Range Comments WBC (test code = WBC) 6.7000 4.0000-10.0000 Lymphocytes % (test code = Lymphocytes %) 30.1000 % 22.400 0-43.6000 MID% (test code = MID%) 7.0000 % 1.2000-11.2000 Neutrophils % (test code = Neutrophils %) 62.9000 % 48.900 0-69.9000 Lymphocytes (test code = Lymphocytes) 2.0000 1.2000-3.2 000 MID (test code = MID) 0.5000 0.1000-1.1000 Neutrophils (test code = Neutrophils) 4.2000 1.5000-6.7 000 RBC (test code = RBC) 4.6300 3.7000-4.9000 HGB (test code = HGB) 13.7000 g/dL 11.2000-18.0000 HCT (test code = HCT) 43.6000 % 34.0000-44.0000 MCV (test code = MCV) 94.2000 fL 80.0000-94.0000 MCH (test code = MCH) 29.7000 pg 27.0000-34.0000 MCHC (test code = MCHC) 31.6000 g/dL 31.5000-36.0000 RDW (test code = RDW) 14.5000 11.0000-18.0000 PLT (test code = PLT) 207.0000 140.0000-440.0000 MPV (test code = MPV) 8.3000 fL 6.8000-10.6000 [id number] 11:39:00 Test Item Value Reference Range Comments Creatinine (test code = Creatinine) 0.6500 mg/dL 0.5700-1.000 0 Cr Clearance (Est) (test code = Cr 79.3900 75.0000-115.0 000 Clearance (Est)) Glucose (test code = Glucose) 70.0000 mg/dL 65.0000-99.0000 BUN (test code = BUN) 15.0000 mg/dL 8.0000-27.0000 eGFR Src-Kvgmmcy-Xjyzcehh (test code = 92.0000 eGFR Cfj-Nzjnszc-Iakqqaxx) eGFR -[place]an (test code = eGFR 106.0000 -[place]) BUN/Creat Ratio (test code = BUN/Creat 23.0000 12.0000-2 8.0000 Ratio) Sodium (test code = Sodium) 142.0000 mmol/L 134.0000-144.0000 Potassium (test code = Potassium) 4.3000 mmol/L 3.5000-5.2000 Chloride (test code = Chloride) 106.0000 mmol/L 96.0000-106.0000 CO2 (test code = CO2) 24.0000 mmol/L 20.0000-29.0000 Calcium (test code = Calcium) 8.9000 mg/dL 8.7000-10.3000 Protein, Total (test code = Protein, 7.1000 g/dL 6.0000-8.50 00 Total) Albumin (test code = Albumin) 4.4000 g/dL 3.6000-4.8000 Globulin (test code = Globulin) 2.7000 g/dL 1.5000-4.5000 A/G Ratio (test code = A/G Ratio) 1.6000 1.2000-2.2000 Bilirubin, Total (test code = Bilirubin, 0.2000 mg/dL 0.0000- 1.2000 Total) Alkaline Phosphatase (test code = Alkaline 67.0000 39.00 00-117.0000 Phosphatase) AST (SGOT) (test code = AST (SGOT)) 20.0000 0.0000-40.00 00 ALT (SGPT) (test code = ALT (SGPT)) 15.0000 0.0000-32.00 00 Iron, Total (test code = Iron, Total) 74.0000 27.0000-13 9.0000 TIBC (test code = TIBC) 324.0000 250.0000-450.0000 UIBC (test code = UIBC) 250.0000 118.0000-369.0000 % Iron Saturation (test code = % Iron 23.0000 % 15.0000-55 .0000 Saturation) Ferritin (test code = Ferritin) 70.0000 ng/mL 15.0000-150.0000 [id number] 11:39:00 Test Item Value Reference Range Comments CEA (test code = CEA) 1.5000 ng/mL 0.0000-4.7000 [id number] 10:01:00 Test Item Value Reference Range Comments WBC (test code = WBC) 6.5000 4.0000-10.0000 Lymphocytes % (test code = Lymphocytes %) 26.2000 % 22.400 0-43.6000 MID% (test code = MID%) 5.6000 % .1999- Neutrophils % (test code = Neutrophils %) 68.2000 % 48.900 0-69.9000 Lymphocytes (test code = Lymphocytes) 1.7000 1.2000-3.2 000 MID (test code = MID) 0.4000 0.1000-1.1000 Neutrophils (test code = Neutrophils) 4.4000 1.5000-6.7 000 RBC (test code = RBC) 4.9900 3.7000-4.9000 HGB (test code = HGB) 14.9000 g/dL 11.2000-18.0000 HCT (test code = HCT) 44.5000 % 34.0000-44.0000 MCV (test code = MCV) 89.2000 fL 80.0000-94.0000 MCH (test code = MCH) 30.0000 pg 27.0000-34.0000 MCHC (test code = MCHC) 33.6000 g/dL 31.5000-36.0000 RDW (test code = RDW) 14.3000 11.0000-18.0000 PLT (test code = PLT) 263.0000 140.0000-440.0000 MPV (test code = MPV) 7.7000 fL 6.8000-10.6000 [id number] 10:37:00 Test Item Value Reference Range Comments WBC (test code = WBC) 5.9000 4.0000-10.0000 Lymphocytes % (test code = Lymphocytes %) 24.0000 % 22.400 0-43.6000 MID% (test code = MID%) 5.9000 % .2000- Neutrophils % (test code = Neutrophils %) 70.1000 % 48.900 0-69.9000 Lymphocytes (test code = Lymphocytes) 1.4000 1.2000-3.2 000 MID (test code = MID) 0.4000 0.1000-1.1000 Neutrophils (test code = Neutrophils) 4.1000 1.5000-6.7 000 RBC (test code = RBC) 4.8300 3.7000-4.9000 HGB (test code = HGB) 14.2000 g/dL 11.2000-18.0000 HCT (test code = HCT) 43.9000 % 34.0000-44.0000 MCV (test code = MCV) 90.8000 fL 80.0000-94.0000 MCH (test code = MCH) 29.4000 pg 27.0000-34.0000 MCHC (test code = MCHC) 32.4000 g/dL 31.5000-36.0000 RDW (test code = RDW) 14.4000 11.0000-18.0000 PLT (test code = PLT) 242.0000 140.0000-440.0000 MPV (test code = MPV) 7.7000 fL 6.8000-10.6000 [id number] 09:36:00 Test Item Value Reference Range Comments WBC (test code = WBC) 6.5000 4.0000-10.0000 Lymphocytes % (test code = Lymphocytes %) 24.6000 % 22.400 0-43.6000 MID% (test code = MID%) 6.0000 % .2000-11 Neutrophils % (test code = Neutrophils %) 69.4000 % 48.900 0-69.9000 Lymphocytes (test code = Lymphocytes) 1.6000 1.2000-3.2 000 MID (test code = MID) 0.4000 0.1000-1.1000 Neutrophils (test code = Neutrophils) 4.5000 1.5000-6.7 000 RBC (test code = RBC) 4.4000 3.7000-4.9000 HGB (test code = HGB) 12.5000 g/dL 11.2000-18.0000 HCT (test code = HCT) 39.0000 % 34.0000-44.0000 MCV (test code = MCV) 88.7000 fL 80.0000-94.0000 MCH (test code = MCH) 28.3000 pg 27.0000-34.0000 MCHC (test code = MCHC) 31.9000 g/dL 31.5000-36.0000 RDW (test code = RDW) 13.8000 11.0000-18.0000 PLT (test code = PLT) 185.0000 140.0000-440.0000 MPV (test code = MPV) 8.1000 fL 6.8000-10.6000 [id number] 10:45:00 Test Item Value Reference Range Comments WBC (test code = WBC) 8.1000 4.0000-10.0000 Lymphocytes % (test code = Lymphocytes %) 26.3000 % 22.400 0-43.6000 MID% (test code = MID%) 6.9000 % 1.1999-.1999 Neutrophils % (test code = Neutrophils %) 66.8000 % 48.900 0-69.9000 Lymphocytes (test code = Lymphocytes) 2.1000 1.2000-3.2 000 MID (test code = MID) 0.6000 0.1000-1.1000 Neutrophils (test code = Neutrophils) 5.4000 1.5000-6.7 000 RBC (test code = RBC) 4.9300 3.7000-4.9000 HGB (test code = HGB) 13.9000 g/dL 11.2000-18.0000 HCT (test code = HCT) 44.4000 % 34.0000-44.0000 MCV (test code = MCV) 90.0000 fL 80.0000-94.0000 MCH (test code = MCH) 28.2000 pg 27.0000-34.0000 MCHC (test code = MCHC) 31.4000 g/dL 31.5000-36.0000 RDW (test code = RDW) 14.2000 11.0000-18.0000 PLT (test code = PLT) 258.0000 140.0000-440.0000 MPV (test code = MPV) 7.6000 fL 6.8000-10.6000 [id number] 09:38:00 Test Item Value Reference Range Comments WBC (test code = WBC) 6.4000 4.0000-10.0000 Lymphocytes % (test code = Lymphocytes %) 35.3000 % 22.400 0-43.6000 MID% (test code = MID%) 6.9000 % .1999- Neutrophils % (test code = Neutrophils %) 57.8000 % 48.900 0-69.9000 Lymphocytes (test code = Lymphocytes) 2.2000 1.2000-3.2 000 MID (test code = MID) 0.5000 0.1000-1.1000 Neutrophils (test code = Neutrophils) 3.7000 1.5000-6.7 000 RBC (test code = RBC) 4.1300 3.7000-4.9000 HGB (test code = HGB) 12.0000 g/dL 11.2000-18.0000 HCT (test code = HCT) 36.6000 % 34.0000-44.0000 MCV (test code = MCV) 88.6000 fL 80.0000-94.0000 MCH (test code = MCH) 29.0000 pg 27.0000-34.0000 MCHC (test code = MCHC) 32.7000 g/dL 31.5000-36.0000 RDW (test code = RDW) 13.5000 11.0000-18.0000 PLT (test code = PLT) 203.0000 140.0000-440.0000 MPV (test code = MPV) 7.6000 fL 6.8000-10.6000 [id number] 09:48:00 Test Item Value Reference Range Comments WBC (test code = WBC) 6.5000 4.0000-10.0000 Lymphocytes % (test code = Lymphocytes %) 33.9000 % 22.400 0-43.6000 MID% (test code = MID%) 7.9000 % 1.2000-11.2000 Neutrophils % (test code = Neutrophils %) 58.2000 % 48.900 0-69.9000 Lymphocytes (test code = Lymphocytes) 2.1999 1.2000-3.2 000 MID (test code = MID) 0.5000 0.1000-1.1000 Neutrophils (test code = Neutrophils) 3.8000 1.5000-6.7 000 RBC (test code = RBC) 4.6000 3.7000-4.9000 HGB (test code = HGB) 13.5000 g/dL 11.2000-18.0000 HCT (test code = HCT) 41.3000 % 34.0000-44.0000 MCV (test code = MCV) 89.9000 fL 80.0000-94.0000 MCH (test code = MCH) 29.4000 pg 27.0000-34.0000 MCHC (test code = MCHC) 32.7000 g/dL 31.5000-36.0000 RDW (test code = RDW) 14.0000 11.0000-18.0000 PLT (test code = PLT) 238.0000 140.0000-440.0000 MPV (test code = MPV) 7.6000 fL 6.8000-10.6000 [id number] 12:20:00 Test Item Value Reference Range Comments Creatinine (test code = Creatinine) 0.6200 mg/dL 0.5700-1.000 0 Cr Clearance (Est) (test code = Cr 88.0700 75.0000-115.0 000 Clearance (Est)) Glucose (test code = Glucose) 61.0000 mg/dL 65.0000-99.0000 BUN (test code = BUN) 13.0000 mg/dL 8.0000-27.0000 eGFR Sbh-Mfqwwko-Vqamekyd (test code = 94.0000 eGFR Zkt-Ysujyse-Trrznosv) eGFR -[place]uean (test code = eGFR 109.0000 -[place]) BUN/Creat Ratio (test code = BUN/Creat 21.0000 12.0000-2 8.0000 Ratio) Sodium (test code = Sodium) 143.0000 mmol/L 134.0000-144.0000 Potassium (test code = Potassium) 4.5000 mmol/L 3.5000-5.2000 Chloride (test code = Chloride) 103.0000 mmol/L 96.0000-106.0000 CO2 (test code = CO2) 24.0000 mmol/L 20.0000-29.0000 Calcium (test code = Calcium) 8.9000 mg/dL 8.7000-10.3000 Protein, Total (test code = Protein, 7.0000 g/dL 6.0000-8.50 00 Total) Albumin (test code = Albumin) 4.0000 g/dL 3.6000-4.8000 Globulin (test code = Globulin) 3.0000 g/dL 1.5000-4.5000 A/G Ratio (test code = A/G Ratio) 1.3000 1.2000-2.2000 Bilirubin, Total (test code = Bilirubin, 0.3000 mg/dL 0.0000- 1.2000 Total) Alkaline Phosphatase (test code = Alkaline 59.0000 39.00 00-117.0000 Phosphatase) AST (SGOT) (test code = AST (SGOT)) 30.0000 0.0000-40.00 00 ALT (SGPT) (test code = ALT (SGPT)) 17.0000 0.0000-32.00 00 Iron, Total (test code = Iron, Total) 94.0000 27.0000-13 9.0000 TIBC (test code = TIBC) 315.0000 250.0000-450.0000 UIBC (test code = UIBC) 221.0000 118.0000-369.0000 % Iron Saturation (test code = % Iron 30.0000 % 15.0000-55 .0000 Saturation) Ferritin (test code = Ferritin) 88.0000 ng/mL 15.0000-150.0000 [id number] 12:20:00 Test Item Value Reference Range Comments CEA (test code = CEA) 1.3000 ng/mL 0.0000-4.7000 [id number] 09:48:00 Test Item Value Reference Range Comments WBC (test code = WBC) 6.1000 4.0000-10.0000 Lymphocytes % (test code = Lymphocytes %) 27.2000 % 22.400 0-43.6000 MID% (test code = MID%) 7.5000 % 1.2000-11.2000 Neutrophils % (test code = Neutrophils %) 65.3000 % 48.900 0-69.9000 Lymphocytes (test code = Lymphocytes) 1.6000 1.2000-3.2 000 MID (test code = MID) 0.5000 0.1000-1.1000 Neutrophils (test code = Neutrophils) 4.0000 1.5000-6.7 000 RBC (test code = RBC) 4.6000 3.7000-4.9000 HGB (test code = HGB) 13.4000 g/dL 11.2000-18.0000 HCT (test code = HCT) 41.0000 % 34.0000-44.0000 MCV (test code = MCV) 89.0000 fL 80.0000-94.0000 MCH (test code = MCH) 29.2000 pg 27.0000-34.0000 MCHC (test code = MCHC) 32.8000 g/dL 31.5000-36.0000 RDW (test code = RDW) 14.5000 11.0000-18.0000 PLT (test code = PLT) 283.0000 140.0000-440.0000 MPV (test code = MPV) 7.5000 fL 6.8000-10.6000 [id number] 09:08:00 Test Item Value Reference Range Comments WBC (test code = WBC) 7.2000 4.0000-10.0000 Lymphocytes % (test code = Lymphocytes %) 27.0000 % 22.400 0-43.6000 MID% (test code = MID%) 6.6000 % 1.1999-.1999 Neutrophils % (test code = Neutrophils %) 66.4000 % 48.900 0-69.9000 Lymphocytes (test code = Lymphocytes) 1.9000 1.2000-3.2 000 MID (test code = MID) 0.5000 0.1000-1.1000 Neutrophils (test code = Neutrophils) 4.8000 1.5000-6.7 000 RBC (test code = RBC) 5.0000 3.7000-4.9000 HGB (test code = HGB) 14.9000 g/dL 11.1999-18.0000 HCT (test code = HCT) 44.0000 % 34.0000-44.0000 MCV (test code = MCV) 88.0000 fL 80.0000-94.0000 MCH (test code = MCH) 29.8000 pg 27.0000-34.0000 MCHC (test code = MCHC) 33.9000 g/dL 31.5000-36.0000 RDW (test code = RDW) 13.7000 11.0000-18.0000 PLT (test code = PLT) 237.0000 140.0000-440.0000 MPV (test code = MPV) 7.8000 fL 6.8000-10.6000 [id number] 10:06:00 Test Item Value Reference Range Comments WBC (test code = WBC) 8.8000 4.0000-10.0000 Lymphocytes % (test code = Lymphocytes %) 20.4000 % 22.400 0-43.6000 MID% (test code = MID%) 5.4000 % 1.1999- Neutrophils % (test code = Neutrophils %) 74.2000 % 48.900 0-69.9000 Lymphocytes (test code = Lymphocytes) 1.8000 1.2000-3.2 000 MID (test code = MID) 0.5000 0.1000-1.1000 Neutrophils (test code = Neutrophils) 6.5000 1.5000-6.7 000 RBC (test code = RBC) 4.8000 3.7000-4.9000 HGB (test code = HGB) 14.5000 g/dL 11.2000-18.0000 HCT (test code = HCT) 42.1000 % 34.0000-44.0000 MCV (test code = MCV) 87.7000 fL 80.0000-94.0000 MCH (test code = MCH) 30.2000 pg 27.0000-34.0000 MCHC (test code = MCHC) 34.4000 g/dL 31.5000-36.0000 RDW (test code = RDW) 13.8000 11.0000-18.0000 PLT (test code = PLT) 255.0000 140.0000-440.0000 MPV (test code = MPV) 7.7000 fL 6.8000-10.6000 [id number] 09:49:00 Test Item Value Reference Range Comments WBC (test code = WBC) 7.4000 4.0000-10.0000 Lymphocytes % (test code = Lymphocytes %) 31.4000 % 22.400 0-43.6000 MID% (test code = MID%) 7.1000 % 1.2000-11.2000 Neutrophils % (test code = Neutrophils %) 61.5000 % 48.900 0-69.9000 Lymphocytes (test code = Lymphocytes) 2.3000 1.2000-3.2 000 MID (test code = MID) 0.6000 0.1000-1.1000 Neutrophils (test code = Neutrophils) 4.5000 1.5000-6.7 000 RBC (test code = RBC) 5.0000 3.7000-4.9000 HGB (test code = HGB) 15.2000 g/dL 11.2000-18.0000 HCT (test code = HCT) 44.5000 % 34.0000-44.0000 MCV (test code = MCV) 89.0000 fL 80.0000-94.0000 MCH (test code = MCH) 30.5000 pg 27.0000-34.0000 MCHC (test code = MCHC) 34.3000 g/dL 31.5000-36.0000 RDW (test code = RDW) 14.0000 11.0000-18.0000 PLT (test code = PLT) 257.0000 140.0000-440.0000 MPV (test code = MPV) 7.7000 fL 6.8000-10.6000 [id number] 11:13:00 Test Item Value Reference Range Comments Creatinine (test code = Creatinine) 0.6600 mg/dL 0.5700-1.000 0 Cr Clearance (Est) (test code = Cr 88.5000 75.0000-115.0 000 Clearance (Est)) Glucose (test code = Glucose) 95.0000 mg/dL 65.0000-99.0000 BUN (test code = BUN) 9.0000 mg/dL 8.0000-27.0000 eGFR Bhh-Jigkkjx-Oiblovkr (test code = 92.0000 eGFR Mhl-Gcfahfj-Rzckhvtq) eGFR -[place] (test code = eGFR 106.0000 -[place]) BUN/Creat Ratio (test code = BUN/Creat 14.0000 12.0000-2 8.0000 Ratio) Sodium (test code = Sodium) 144.0000 mmol/L 134.0000-144.0000 Potassium (test code = Potassium) 3.9000 mmol/L 3.5000-5.2000 Chloride (test code = Chloride) 104.0000 mmol/L 96.0000-106.0000 CO2 (test code = CO2) 23.0000 mmol/L 20.0000-29.0000 Calcium (test code = Calcium) 8.8000 mg/dL 8.7000-10.3000 Protein, Total (test code = Protein, 6.8000 g/dL 6.0000-8.50 00 Total) Albumin (test code = Albumin) 4.1000 g/dL 3.6000-4.8000 Globulin (test code = Globulin) 2.7000 g/dL 1.5000-4.5000 A/G Ratio (test code = A/G Ratio) 1.5000 1.2000-2.2000 Bilirubin, Total (test code = Bilirubin, 0.3000 mg/dL 0.0000- 1.2000 Total) Alkaline Phosphatase (test code = Alkaline 65.0000 39.00 00-117.0000 Phosphatase) AST (SGOT) (test code = AST (SGOT)) 20.0000 0.0000-40.00 00 ALT (SGPT) (test code = ALT (SGPT)) 14.0000 0.0000-32.00 00 Iron, Total (test code = Iron, Total) 139.0000 27.0000-13 9.0000 TIBC (test code = TIBC) 295.0000 250.0000-450.0000 UIBC (test code = UIBC) 156.0000 118.0000-369.0000 % Iron Saturation (test code = % Iron 47.0000 % 15.0000-55 .0000 Saturation) Ferritin (test code = Ferritin) 113.0000 ng/mL 15.0000-150.0000 [id number] 11:13:00 Test Item Value Reference Range Comments CEA (test code = CEA) 1.6000 ng/mL 0.0000-4.7000 [id number] 10:02:00 Test Item Value Reference Range Comments WBC (test code = WBC) 5.7000 4.0000-10.0000 Lymphocytes % (test code = Lymphocytes %) 24.2000 % 22.400 0-43.6000 MID% (test code = MID%) 6.9000 % .1999- Neutrophils % (test code = Neutrophils %) 68.9000 % 48.900 0-69.9000 Lymphocytes (test code = Lymphocytes) 1.3000 1.2000-3.2 000 MID (test code = MID) 0.5000 0.1000-1.1000 Neutrophils (test code = Neutrophils) 3.9000 1.5000-6.7 000 RBC (test code = RBC) 4.2600 3.7000-4.9000 HGB (test code = HGB) 14.1000 g/dL 11.2000-18.0000 HCT (test code = HCT) 37.5000 % 34.0000-44.0000 MCV (test code = MCV) 88.0000 fL 80.0000-94.0000 MCH (test code = MCH) 33.2000 pg 27.0000-34.0000 MCHC (test code = MCHC) 37.7000 g/dL 31.5000-36.0000 RDW (test code = RDW) 13.8000 11.0000-18.0000 PLT (test code = PLT) 210.0000 140.0000-440.0000 MPV (test code = MPV) 7.3000 fL 6.8000-10.6000 [id number] 09:33:00 Test Item Value Reference Range Comments WBC (test code = WBC) 7.1000 4.0000-10.0000 Lymphocytes % (test code = Lymphocytes %) 29.9000 % 22.400 0-43.6000 MID% (test code = MID%) 6.4000 % .1999- Neutrophils % (test code = Neutrophils %) 63.7000 % 48.900 0-69.9000 Lymphocytes (test code = Lymphocytes) 2.1000 1.2000-3.2 000 MID (test code = MID) 0.5000 0.1000-1.1000 Neutrophils (test code = Neutrophils) 4.5000 1.5000-6.7 000 RBC (test code = RBC) 5.0000 3.7000-4.9000 HGB (test code = HGB) 14.8000 g/dL 11.2000-18.0000 HCT (test code = HCT) 43.9000 % 34.0000-44.0000 MCV (test code = MCV) 87.8000 fL 80.0000-94.0000 MCH (test code = MCH) 29.6000 pg 27.0000-34.0000 MCHC (test code = MCHC) 33.7000 g/dL 31.5000-36.0000 RDW (test code = RDW) 13.5000 11.0000-18.0000 PLT (test code = PLT) 227.0000 140.0000-440.0000 MPV (test code = MPV) 7.4000 fL 6.8000-10.6000 [id number] 13:44:00 Test Item Value Reference Range Comments WBC (test code = WBC) 8.8000 4.0000-10.0000 Lymphocytes % (test code = Lymphocytes %) 31.3000 % 22.400 0-43.6000 MID% (test code = MID%) 7.6000 % 1.2000-11.2000 Neutrophils % (test code = Neutrophils %) 61.1000 % 48.900 0-69.9000 Lymphocytes (test code = Lymphocytes) 2.7000 1.2000-3.2 000 MID (test code = MID) 0.8000 0.1000-1.1000 Neutrophils (test code = Neutrophils) 5.3000 1.5000-6.7 000 RBC (test code = RBC) 5.1100 3.7000-4.9000 HGB (test code = HGB) 15.7000 g/dL 11.2000-18.0000 HCT (test code = HCT) 46.3000 % 34.0000-44.0000 MCV (test code = MCV) 90.6000 fL 80.0000-94.0000 MCH (test code = MCH) 30.7000 pg 27.0000-34.0000 MCHC (test code = MCHC) 33.9000 g/dL 31.5000-36.0000 RDW (test code = RDW) 14.1000 11.0000-18.0000 PLT (test code = PLT) 205.0000 140.0000-440.0000 MPV (test code = MPV) 7.9000 fL 6.8000-10.6000 [id number] 09:54:00 Test Item Value Reference Range Comments WBC (test code = WBC) 8.0000 4.0000-10.0000 Lymphocytes % (test code = Lymphocytes %) 24.0000 % 22.400 0-43.6000 MID% (test code = MID%) 6.3000 % .1999- Neutrophils % (test code = Neutrophils %) 69.7000 % 48.900 0-69.9000 Lymphocytes (test code = Lymphocytes) 1.9000 1.2000-3.2 000 MID (test code = MID) 0.5000 0.1000-1.1000 Neutrophils (test code = Neutrophils) 5.6000 1.5000-6.7 000 RBC (test code = RBC) 5.2000 3.7000-4.9000 HGB (test code = HGB) 15.0000 g/dL 11.2000-18.0000 HCT (test code = HCT) 47.4000 % 34.0000-44.0000 MCV (test code = MCV) 91.0000 fL 80.0000-94.0000 MCH (test code = MCH) 28.8000 pg 27.0000-34.0000 MCHC (test code = MCHC) 31.6000 g/dL 31.5000-36.0000 RDW (test code = RDW) 14.5000 11.0000-18.0000 PLT (test code = PLT) 224.0000 140.0000-440.0000 MPV (test code = MPV) 7.9000 fL 6.8000-10.6000 [id number] 13:45:00 Test Item Value Reference Range Comments WBC (test code = WBC) 9.3000 4.0000-10.0000 Lymphocytes % (test code = Lymphocytes %) 23.5000 % 22.400 0-43.6000 MID% (test code = MID%) 6.3000 % .1999- Neutrophils % (test code = Neutrophils %) 70.2000 % 48.900 0-69.9000 Lymphocytes (test code = Lymphocytes) 2.1000 1.2000-3.2 000 MID (test code = MID) 0.7000 0.1000-1.1000 Neutrophils (test code = Neutrophils) 6.5000 1.5000-6.7 000 RBC (test code = RBC) 4.8700 3.7000-4.9000 HGB (test code = HGB) 14.4000 g/dL 11.2000-18.0000 HCT (test code = HCT) 44.4000 % 34.0000-44.0000 MCV (test code = MCV) 91.2000 fL 80.0000-94.0000 MCH (test code = MCH) 29.5000 pg 27.0000-34.0000 MCHC (test code = MCHC) 32.4000 g/dL 31.5000-36.0000 RDW (test code = RDW) 14.3000 11.0000-18.0000 PLT (test code = PLT) 234.0000 140.0000-440.0000 MPV (test code = MPV) 7.9000 fL 6.8000-10.6000 [id number] 10:06:00 Test Item Value Reference Range Comments WBC (test code = WBC) 6.2000 4.0000-10.0000 Lymphocytes % (test code = Lymphocytes %) 21.6000 % 22.400 0-43.6000 MID% (test code = MID%) 6.0000 % 1.2000-11.2000 Neutrophils % (test code = Neutrophils %) 72.4000 % 48.900 0-69.9000 Lymphocytes (test code = Lymphocytes) 1.3000 1.2000-3.2 000 MID (test code = MID) 0.4000 0.1000-1.1000 Neutrophils (test code = Neutrophils) 4.5000 1.5000-6.7 000 RBC (test code = RBC) 4.6200 3.7000-4.9000 HGB (test code = HGB) 13.4000 g/dL 11.2000-18.0000 HCT (test code = HCT) 41.9000 % 34.0000-44.0000 MCV (test code = MCV) 90.7000 fL 80.0000-94.0000 MCH (test code = MCH) 29.0000 pg 27.0000-34.0000 MCHC (test code = MCHC) 31.9000 g/dL 31.5000-36.0000 RDW (test code = RDW) 14.1999 11.0000-18.0000 PLT (test code = PLT) 239.0000 140.0000-440.0000 MPV (test code = MPV) 7.8000 fL 6.8000-10.6000 [id number] 10:47:00 Test Item Value Reference Range Comments WBC (test code = WBC) 6.2000 4.0000-10.0000 Lymphocytes % (test code = Lymphocytes %) 27.1000 % 22.400 0-43.6000 MID% (test code = MID%) 6.8000 % 1.2000-11.2000 Neutrophils % (test code = Neutrophils %) 66.1000 % 48.900 0-69.9000 Lymphocytes (test code = Lymphocytes) 1.6000 1.2000-3.2 000 MID (test code = MID) 0.5000 0.1000-1.1000 Neutrophils (test code = Neutrophils) 4.1000 1.5000-6.7 000 RBC (test code = RBC) 4.5700 3.7000-4.9000 HGB (test code = HGB) 13.3000 g/dL 11.2000-18.0000 HCT (test code = HCT) 40.5000 % 34.0000-44.0000 MCV (test code = MCV) 88.5000 fL 80.0000-94.0000 MCH (test code = MCH) 29.1000 pg 27.0000-34.0000 MCHC (test code = MCHC) 32.9000 g/dL 31.5000-36.0000 RDW (test code = RDW) 13.9000 11.0000-18.0000 PLT (test code = PLT) 220.0000 140.0000-440.0000 MPV (test code = MPV) 7.7000 fL 6.8000-10.6000 Iron, [id number] 16:14:00 Test Item Value Reference Range Comments Iron, Total (test code = Iron, Total) 81.0000 27.0000-13 9.0000 TIBC (test code = TIBC) 298.0000 250.0000-450.0000 UIBC (test code = UIBC) 217.0000 118.0000-369.0000 % Iron Saturation (test code = % Iron 27.0000 % 15.0000-55 .0000 Saturation) Vitamin B12 (test code = Vitamin B12) 285.0000 pg/mL 232.0000-1 245.0000 Folate (test code = Folate) 20.0000 ng/mL Vitamin D (25-Hydroxy) (test code = 37.8000 ng/mL 30.0000-100. 0000 Vitamin D (25-Hydroxy)) Ferritin (test code = Ferritin) 130.0000 ng/mL 15.0000-150.0000 [id number] 16:14:00 Test Item Value Reference Range Comments CEA (test code = CEA) 1.3000 ng/mL 0.0000-4.7000 [id number] 13:54:00 Test Item Value Reference Range Comments WBC (test code = WBC) 7.9000 4.0000-10.0000 Lymphocytes % (test code = Lymphocytes %) 29.0000 % 22.400 0-43.6000 MID% (test code = MID%) 6.9000 % 1.2000-11.2000 Neutrophils % (test code = Neutrophils %) 64.1000 % 48.900 0-69.9000 Lymphocytes (test code = Lymphocytes) 2.3000 1.2000-3.2 000 MID (test code = MID) 0.6000 0.1000-1.1000 Neutrophils (test code = Neutrophils) 5.0000 1.5000-6.7 000 RBC (test code = RBC) 4.7000 3.7000-4.9000 HGB (test code = HGB) 15.1000 g/dL 11.2000-18.0000 HCT (test code = HCT) 41.9000 % 34.0000-44.0000 MCV (test code = MCV) 89.0000 fL 80.0000-94.0000 MCH (test code = MCH) 32.0000 pg 27.0000-34.0000 MCHC (test code = MCHC) 36.0000 g/dL 31.5000-36.0000 RDW (test code = RDW) 14.3000 11.0000-18.0000 PLT (test code = PLT) 249.0000 140.0000-440.0000 MPV (test code = MPV) 7.9000 fL 6.8000-10.6000 Iron, [id number] 14:25:00 Test Item Value Reference Range Comments Iron, Total (test code = Iron, Total) 110.0000 27.0000-13 9.0000 TIBC (test code = TIBC) 322.0000 250.0000-450.0000 UIBC (test code = UIBC) 212.0000 118.0000-369.0000 % Iron Saturation (test code = % Iron 34.0000 % 15.0000-55 .0000 Saturation) [id number] 14:25:00 Test Item Value Reference Range Comments CEA (test code = CEA) 1.3000 ng/mL 0.0000-4.7000 [id number] 11:09:00 Test Item Value Reference Range Comments Ferritin (test code = Ferritin) 78.7000 ng/mL 20.0000-300.0000 [id number] 09:04:00 Test Item Value Reference Range Comments WBC (test code = WBC) 5.6000 4.0000-10.0000 Lymphocytes % (test code = Lymphocytes %) 27.2000 % 22.400 0-43.6000 MID% (test code = MID%) 6.4000 % 1.2000-11.2000 Neutrophils % (test code = Neutrophils %) 66.4000 % 48.900 0-69.9000 Lymphocytes (test code = Lymphocytes) 1.5000 1.2000-3.2 000 MID (test code = MID) 0.4000 0.1000-1.1000 Neutrophils (test code = Neutrophils) 3.7000 1.5000-6.7 000 RBC (test code = RBC) 4.7100 3.7000-4.9000 HGB (test code = HGB) 15.1000 g/dL 11.2000-18.0000 HCT (test code = HCT) 42.5000 % 34.0000-44.0000 MCV (test code = MCV) 90.1000 fL 80.0000-94.0000 MCH (test code = MCH) 32.0000 pg 27.0000-34.0000 MCHC (test code = MCHC) 35.5000 g/dL 31.5000-36.0000 RDW (test code = RDW) 14.0000 11.0000-18.0000 PLT (test code = PLT) 225.0000 140.0000-440.0000 MPV (test code = MPV) 7.3000 fL 6.8000-10.6000 Iron, [id number] 14:23:00 Test Item Value Reference Range Comments Iron, Total (test code = Iron, Total) 80.0000 27.0000-13 9.0000 TIBC (test code = TIBC) 295.0000 250.0000-450.0000 UIBC (test code = UIBC) 215.0000 118.0000-369.0000 % Iron Saturation (test code = % Iron 27.0000 % 15.0000-55 .0000 Saturation) Ferritin (test code = Ferritin) 242.0000 ng/mL 15.0000-150.0000 [id number] 08:46:00 Test Item Value Reference Range Comments WBC (test code = WBC) 5.6000 4.0000-10.0000 Lymphocytes % (test code = Lymphocytes %) 25.8000 % 22.400 0-43.6000 MID% (test code = MID%) 6.3000 % 1.2000-11.2000 Neutrophils % (test code = Neutrophils %) 67.9000 % 48.900 0-69.9000 Lymphocytes (test code = Lymphocytes) 1.4000 1.2000-3.2 000 MID (test code = MID) 0.4000 0.1000-1.1000 Neutrophils (test code = Neutrophils) 3.8000 1.5000-6.7 000 RBC (test code = RBC) 4.8700 3.7000-4.9000 HGB (test code = HGB) 13.6000 g/dL 11.2000-18.0000 HCT (test code = HCT) 41.0000 % 34.0000-44.0000 MCV (test code = MCV) 84.1000 fL 80.0000-94.0000 MCH (test code = MCH) 28.0000 pg 27.0000-34.0000 MCHC (test code = MCHC) 33.3000 g/dL 31.5000-36.0000 RDW (test code = RDW) 18.4000 11.0000-18.0000 PLT (test code = PLT) 246.0000 140.0000-440.0000 MPV (test code = MPV) 7.6000 fL 6.8000-10.6000 [id number] 08:46:00 Test Item Value Reference Range Comments Creatinine (test code = Creatinine) 0.7000 mg/dL 0.5000-1.200 0 Cr Clearance (Est) (test code = Cr 88.9500 75.0000-115.0 000 Clearance (Est)) Glucose (test code = Glucose) 85.0000 mg/dL 70.0000-118.0000 BUN (test code = BUN) 15.0000 mg/dL 7.0000-22.0000 Sodium (test code = Sodium) 139.0000 mmol/L 128.0000-145.0000 Potassium (test code = Potassium) 4.3000 mmol/L 3.6000-5.1000 Chloride (test code = Chloride) 109.0000 mmol/L 96.0000-108.0000 CO2 (test code = CO2) 28.0000 mmol/L 18.0000-33.0000 Calcium (test code = Calcium) 9.5200 mg/dL 8.0000-10.3000 Alkaline Phosphatase (test code = Alkaline 73.0000 42.00 00-141.0000 Phosphatase) ALT (SGPT) (test code = ALT (SGPT)) 18.0000 10.0000-47.0 000 AST (SGOT) (test code = AST (SGOT)) 21.0000 11.0000-37.0 000 Bilirubin, Total (test code = Bilirubin, 0.5000 mg/dL 0.0000- 1.6000 Total) Albumin (test code = Albumin) 4.8000 g/dL 3.5000-5.5000 Protein, Total (test code = Protein, 7.7000 g/dL 6.4000-8.10 00 Total) Iron, [id number] 14:02:00 Test Item Value Reference Range Comments Iron, Total (test code = Iron, Total) 33.0000 27.0000-13 9.0000 TIBC (test code = TIBC) 461.0000 250.0000-450.0000 UIBC (test code = UIBC) 428.0000 118.0000-369.0000 % Iron Saturation (test code = % Iron 7.0000 % 15.0000-55 .0000 Saturation) Vitamin B12 (test code = Vitamin B12) 333.0000 pg/mL 211.0000-9 46.0000 Folate (test code = Folate) 17.2000 ng/mL Ferritin (test code = Ferritin) 6.0000 ng/mL 15.0000-150.0000 [id number] 10:58:00 Test Item Value Reference Range Comments WBC (test code = WBC) 6.2000 4.0000-10.0000 Lymphocytes % (test code = Lymphocytes %) 29.1000 % 22.400 0-43.6000 MID% (test code = MID%) 5.8000 % 1.2000-11.2000 Neutrophils % (test code = Neutrophils %) 65.1000 % 48.900 0-69.9000 Lymphocytes (test code = Lymphocytes) 1.8000 1.2000-3.2 000 MID (test code = MID) 0.4000 0.1000-1.1000 Neutrophils (test code = Neutrophils) 4.0000 1.5000-6.7 000 RBC (test code = RBC) 4.8400 3.7000-4.9000 HGB (test code = HGB) 12.1000 g/dL 11.2000-14.4000 HCT (test code = HCT) 36.4000 % 34.0000-44.0000 MCV (test code = MCV) 75.2000 fL 80.0000-94.0000 MCH (test code = MCH) 25.0000 pg 27.0000-34.0000 MCHC (test code = MCHC) 33.2000 g/dL 31.5000-36.0000 RDW (test code = RDW) 16.9000 11.0000-18.0000 PLT (test code = PLT) 293.0000 140.0000-440.0000 MPV (test code = MPV) 6.8000 fL 6.8000-10.6000 [id number] 10:58:00 Test Item Value Reference Range Comments Creatinine (test code = Creatinine) 0.8000 mg/dL 0.5000-1.200 0 Cr Clearance (Est) (test code = Cr 79.2600 75.0000-115.0 000 Clearance (Est)) Glucose (test code = Glucose) 87.0000 mg/dL 70.0000-118.0000 BUN (test code = BUN) 12.0000 mg/dL 7.0000-22.0000 Sodium (test code = Sodium) 140.0000 mmol/L 128.0000-145.0000 Potassium (test code = Potassium) 3.9000 mmol/L 3.6000-5.1000 Chloride (test code = Chloride) 104.0000 mmol/L 96.0000-108.0000 CO2 (test code = CO2) 28.0000 mmol/L 18.0000-33.0000 Calcium (test code = Calcium) 9.2100 mg/dL 8.0000-10.3000 Alkaline Phosphatase (test code = Alkaline 74.0000 42.00 00-141.0000 Phosphatase) ALT (SGPT) (test code = ALT (SGPT)) 17.0000 10.0000-47.0 000 AST (SGOT) (test code = AST (SGOT)) 22.0000 11.0000-37.0 000 Bilirubin, Total (test code = Bilirubin, 0.3000 mg/dL 0.0000- 1.6000 Total) Albumin (test code = Albumin) 4.4000 g/dL 3.5000-5.5000 Protein, Total (test code = Protein, 8.0000 g/dL 6.4000-8.10 00 Total) Encounters Start End Encounter Admission Attending Care Care Encounter Date/Time Date/Time Type Type Clinicians Facility Department ID 2020-06-01 2020-06-01 Outpatient Rashaun Rosario rn [id number] 00:00:00 00:00:00 [facility] Oncology Oncology [facility] 2020-05-28 2020-05-28 Outpatient Rashaun fernandez [id number] 00:00:00 00:00:00 [facility] Oncology Oncology [facility] 2020-05-04 2020-05-04 Outpatient Rashaun Rosario rn [id number] 00:00:00 00:00:00 [facility] Oncology Oncology [facility] 2020-04-06 2020-04-06 Rashaun Rosario [id number] 00:00:00 00:00:00 [facility] Oncology Oncology [facility] 2020-04-03 2020-04-03 Outpatient Rashaun Rosario rn [id number] 00:00:00 00:00:00 [facility] Oncology Oncology [facility] 2020-04-02 2020-04-02 Outpatient Rashaun Rosario rn [id number] 00:00:00 00:00:00 [facility] Oncology Oncology [facility] 2020-03-09 2020-03-09 Outpatient Rashaun Rosario rn [id number] 00:00:00 00:00:00 [facility] Oncology Oncology [facility] 2020-03-06 2020-03-06 Outpatient Rashaun Rosario rn [id number] 00:00:00 00:00:00 [facility] Oncology Oncology [facility] 2020-03-05 2020-03-05 Outpatient Rashaun Rosario rn [id number] 00:00:00 00:00:00 [facility] Oncology Oncology [facility] 2020-02-10 2020-02-10 Outpatient Rashaun Rosario rn [id number] 00:00:00 00:00:00 [facility] Oncology Oncology [facility] 2020-02-07 2020-02-07 Outpatient Rashaun Rosario rn [id number] 00:00:00 00:00:00 [facility] 2020-02-06 2020-02-06 Outpatient Rashaun Rosario rn [id number] 00:00:00 00:00:00 [facility] [place] 2020-01-10 2020-01-10 Outpatient Sarmader Sarmader n [id number] 00:00:00 00:00:00 n [facility] [place] 2020-01-09 2020-01-09 Outpatient Southeaster Southeaster n [id number] 00:00:00 00:00:00 [facility] [place] 2019-12-12 2019-12-12 Outpatient Southeaster Sout[facility]aster n [id number] 00:00:00 00:00:00 [facility] [place] 2019-12-11 2019-12-11 Outpatient Southeaster [facility] n [id number] 00:00:00 00:00:00 [facility] [place] 2019-11-28 2019-11-28 Outpatient Southeaster Sarmader n [id number] 00:00:00 00:00:00 [facility] [place] 2019-11-14 2019-11-14 Outpatient Southeaster Southeaster n [id number] 00:00:00 00:00:00 [facility] [place] 2019-11-13 2019-11-13 Outpatient Southeaster [facility] n [id number] 00:00:00 00:00:00 [facility] [place] 2019-11-06 2019-11-06 Outpatient Southeaster Sarmader n [id number] 00:00:00 00:00:00 n [facility] [place] 2019-10-18 2019-10-18 Outpatient Southeaster [facility] n [id number] 00:00:00 00:00:00 [facility] [place] 2019-10-17 2019-10-17 Marlene Rosario [facility] [id number] 00:00:00 00:00:00 Dr. Louie fernandez [facility] On[facility] [place] 2019-10-16 2019-10-16 Outpatient Southeaster [facility] n [id number] 00:00:00 00:00:00 n [facility] [place] 2019-09-25 2019-09-25 Outpatient [facility] n [id number] 00:00:00 00:00:00 n [facility] [place] 2019-09-19 2019-09-19 Outpatient Rashaun Rodney n [id number] 00:00:00 00:00:00 [facility] Medical Oncology Oncology [facility] [place] 2019-08-22 2019-08-22 Outpatient Rashaun Bañueloser n [id number] 00:00:00 00:00:00 [facility] Medical Oncology Oncology [facility] [place] 2019-07-25 2019-07-25 Outpatient Rashaun Bañuelosjazmín n [id number] 00:00:00 00:00:00 [facility] Medical Oncology Oncology [facility] [place] 2019-06-27 2019-06-27 Outpatient Rashaun Bañuelosjazmín n [id number] 00:00:00 00:00:00 [facility] Medical Oncology Oncology [facility] [place] 2019-05-30 2019-05-30 Outpatient Rashaun Rosario rn [id number] 00:00:00 00:00:00 [facility] Medical Oncology Oncology [facility] [place] 2019-05-08 2019-05-08 Outpatient Rashaun Rosario rn [id number] 00:00:00 00:00:00 [facility] Medical Oncology Oncology [facility] [place] 2019-05-02 2019-05-02 Marlene Rosario [facility] [id number] 00:00:00 00:00:[address] [place] 2019-04-10 2019-04-10 Outpatient Rashaun Rosario rn [id number] 00:00:00 00:00:00 [facility] Medical Oncology Oncology [facility] [place] 2019-04-05 2019-04-05 Outpatient Sarmadjazmín Sarmadjazmín n [id number] 00:00:00 00:00:00 [facility] Medical Oncology Oncology [facility] [place] 2019-04-04 2019-04-04 Outpatient Rashaun Sarmadjazmín n [id number] 00:00:00 00:00:00 [facility] Medical Oncology Oncology [facility] [place] 2019-03-13 2019-03-13 Outpatient Rashaun Rosario rn [id number] 00:00:00 00:00:00 [facility] Medical Oncology Oncology [facility] [place] 2019-03-07 2019-03-07 Outpatient Rashaun Rodney n [id number] 00:00:00 00:00:00 [facility] Oncology Oncology [facility] [place] 2019-02-13 2019-02-13 Outpatient Rashaun Rosario rn [id number] 00:00:00 00:00:00 [facility] Oncology Oncology [facility] 2019-01-16 2019-01-16 Outpatient Davidhina Rashaun Sarmade rn [id number] 00:00:00 00:00:00 [facility] Oncology Oncology [facility] 2018-12-19 2018-12-19 Outpatient Davidhina Rashaun Sarmade rn [id number] 00:00:00 00:00:00 [facility] Oncology Oncology [facility] 2018-12-12 2018-12-12 Outpatient Rashaun Rodney n [id number] 00:00:00 00:00:00 [facility] Oncology Oncology [facility] 2018-12-05 2018-12-05 Outpatient Rashaun Bañueloser n [id number] 00:00:00 00:00:00 [facility] Oncology Oncology [facility] 2018-11-28 2018-11-28 Outpatient Rashaun Rodney n [id number] 00:00:00 00:00:00 [facility] Oncology Oncology [facility] 2018-11-23 2018-11-23 Outpatient Rashaun Rodney n [id number] 00:00:00 00:00:00 [facility] Oncology Oncology [facility] 2018-11-22 2018-11-22 Outpatient Davidhina Rashaun Sarmade rn [id number] 00:00:00 00:00:00 [facility] Oncology Oncology [facility] 2018-11-21 2018-11-21 Davidhina Davidhina Sarmadjazmín [facility] [id number] 00:00:00 00:00:00 Dr. Palma [facility] Oncology Oncology [facility] 2018-10-24 2018-10-24 Outpatient Rashaun Rosarioe rn [id number] 00:00:00 00:00:00 [facility] Oncology Oncology [facility] 2018-09-26 2018-09-26 Outpatient Rashaun Rosarioe rn [id number] 00:00:00 00:00:00 [facility] Oncology Oncology [facility] 2018-08-29 2018-08-29 Outpatient Rashaun Rosarioe rn [id number] 00:00:00 00:00:00 [facility] Oncology Oncology [facility] 2018-08-01 2018-08-01 Outpatient Rashaun Rosarioe rn [id number] 00:00:00 00:00:00 [facility] Oncology Oncology [facility] 2018-07-04 2018-07-04 Outpatient Rashaun Rosarioe rn [id number] 00:00:00 00:00:00 [facility] Oncology Oncology [facility] 2018-06-22 2018-06-22 Outpatient Rashaun Rosarioe rn [id number] 00:00:00 00:00:00 [facility] Oncology Oncology [facility] 2018-06-15 2018-06-15 Outpatient Marlene Rashaun Sarmade rn [id number] 00:00:00 00:00:00 [facility] Oncology Oncology [facility] 2018-06-07 2018-06-07 Outpatient Rashaun Rosario Sarmade rn [id number] 00:00:00 00:00:00 [facility] Oncology Oncology [facility] 2018-06-06 2018-06-06 JaMarlene castorena Rashaun [facility] [id number] 00:00:00 00:00:00 Dr. Palma [facility] Oncology Oncology [facility] 2018-06-05 2018-06-05 Outpatient Marlene Rashaun Sarmade rn [id number] 00:00:00 00:00:00 [facility] Oncology Oncology [facility] 2018-05-09 2018-05-09 Outpatient Rashaun Rosarioe rn [id number] 00:00:00 00:00:00 [facility] Oncology Oncology [facility] 2018-05-08 2018-05-08 Outpatient Rashaun Rosarioe rn [id number] 00:00:00 00:00:00 [facility] Oncology Oncology [facility] 2018-04-11 2018-04-11 Outpatient Miguelraffaele Sarmadjazmín Bañuelose rn [id number] 00:00:00 00:00:00 [facility] Oncology Oncology [facility] 2018-04-10 2018-04-10 Outpatient MiguelRashaun castorena Sarmade rn [id number] 00:00:00 00:00:00 [facility] Oncology Oncology [facility] 2018-03-13 2018-03-13 Outpatient Miguelraffaele Sarmadjazmín Bañuelose rn [id number] 00:00:00 00:00:00 [facility] Oncology Oncology [facility] 2018-02-19 2018-02-19 Outpatient Sarmadjazmín Rashaun n [id number] 00:00:00 00:00:00 [facility] Oncology Oncology [facility] 2018-02-13 2018-02-13 Outpatient MiguelRashaun castorena Mark rn [id number] 00:00:00 00:00:00 [facility] Oncology Oncology [facility] 2018-01-16 2018-01-16 Outpatient Rashaun Rosario Mark rn [id number] 00:00:00 00:00:00 [facility] Oncology Oncology [facility] 2018-01-05 2018-01-05 Outpatient Rashaun Bañuelosjazmín n [id number] 00:00:00 00:00:00 [facility] Oncology Oncology [facility] 2017-12-22 2017-12-22 Outpatient MiguelRashaun castorena Mark rn [id number] 00:00:00 00:00:00 [facility] Oncology Oncology [facility] 2017-12-19 2017-12-19 Davidhina Miguelraffaele Sarmadjazmín [facility] [id number] 00:00:00 00:00:00 Dr. Palma [facility] Oncology Oncology [facility] 2017-12-18 2017-12-18 Outpatient Miguelraffaele Sarmadjazmín Flores rn [id number] 00:00:00 00:00:00 [facility] Oncology Oncology [facility] 2017-11-21 2017-11-21 Outpatient MiguelRashaun castorena Mark rn [id number] 00:00:00 00:00:00 [facility] Oncology Oncology [facility] 2017-10-24 2017-10-24 Outpatient MiguelRashaun castorena Mark rn [id number] 00:00:00 00:00:00 [facility] Oncology Oncology [facility] 2017-09-25 2017-09-25 Outpatient Davidhina Sarmadjazmín Flores rn [id number] 00:00:00 00:00:00 [facility] Oncology Oncology [facility] 2017-09-07 2017-09-07 Outpatient Sarmadjazmín Bañuelosjazmín n [id number] 00:00:00 00:00:00 [facility] Oncology Oncology [facility] 2017-08-28 2017-08-28 Outpatient Rashaun Sarmadjazmín n [id number] 00:00:00 00:00:00 [facility] Oncology Oncology [facility] 2017-07-28 2017-07-28 Outpatient DavidhinaRashaun rn [id number] 00:00:00 00:00:00 [facility] Oncology Oncology [facility] 2017-07-27 2017-07-27 Outpatient MiguelRashaun castorenabirgit rn [id number] 00:00:00 00:00:00 [facility] Oncology Oncology [facility] 2017-07-26 2017-07-26 Outpatient MiguelRashaun castorenabirgit rn [id number] 00:00:00 00:00:00 [facility] Oncology Oncology [facility] 2017-07-25 2017-07-25 Outpatient Miguelraffaele Rashaun Bañuelosbirgit rn [id number] 00:00:00 00:00:00 [facility] Oncology Oncology [facility] [place] 2017-07-24 2017-07-24 Outpatient MiguelRashaun castorenae rn [id number] 00:00:00 00:00:00 [facility] Oncology Oncology [facility] 2017-07-21 2017-07-21 Outpatient Rashaun Rodney n [id number] 00:00:00 00:00:00 [facility] Oncology Oncology [facility] 2017-07-20 2017-07-20 Outpatient Rashaun Rodney n [id number] 00:00:00 00:00:00 [facility] Oncology Oncology [facility] 2017-07-19 2017-07-19 Outpatient Rashaun Rodney n [id number] 00:00:00 00:00:00 [facility] Oncology Oncology [facility] 2017-07-18 2017-07-18 Outpatient Miguelraffaele Rashaun Bauñelosbirgit rn [id number] 00:00:00 00:00:00 [facility] Oncology Oncology [facility] 2017-07-17 2017-07-17 Outpatient Miguelraffaele Rashaun Mark rn [id number] 00:00:00 00:00:00 [facility] Oncology Oncology [facility] 2017-07-11 2017-07-11 Outpatient Miguelraffaele Rashaun Bañuelosbirgit rn [id number] 00:00:00 00:00:00 [facility] Oncology Oncology [facility] [place] 2017-07-07 2017-07-07 Marlene Reid [facility] [id number] 00:00:00 00:00:00 Amelia [facility] Oncology Oncology [facility] 2017-07-03 2017-07-03 Marlene Baig [facility] [id number] 00:00:00 00:00:00 Suyapa [facility] Oncology Oncology [facility] 2017-03-02 2017-03-02 Ronny [facility] [id number] 00:00:00 00:00:[address] [facility] Oncology Oncology [facility] [place] 2016-09-01 2016-09-01 Marlene Rosario [facility] [id number] 00:00:00 00:00:00 Dr. Palma [facility] Oncology Oncology [facility] 2016-08-06 2016-08-06 Outpatient Rashaun Rosariobirgit rn [id number] 00:00:00 00:00:00 [facility] Oncology Oncology [facility] 2016-08-05 2016-08-05 Outpatient Rashaun Rosarioe rn [id number] 00:00:00 00:00:00 [facility] Oncology Oncology [facility] 2016-08-04 2016-08-04 Outpatient Rashaun Rosariobirgit rn [id number] 00:00:00 00:00:00 [facility] Oncology Oncology [facility] 2016-07-30 2016-07-30 Outpatient Rashaun Rosariobirgit rn [id number] 00:00:00 00:00:00 [facility] Oncology Oncology [facility] 2016-07-29 2016-07-29 Outpatient Rashaun Rosariobirgit rn [id number] 00:00:00 00:00:00 [facility] Oncology Oncology [facility] 2016-07-28 2016-07-28 Outpatient Rashaun Rosariobirgit rn [id number] 00:00:00 00:00:00 [facility] Oncology Oncology [facility] 2016-07-22 2016-07-22 Outpatient Rashaun Rosariobirgit rn [id number] 00:00:00 00:00:00 [facility] Oncology Oncology [facility] 2016-07-20 2016-07-20 Outpatient Rashaun Rosarioe rn [id number] 00:00:00 00:00:00 [facility] Oncology Oncology [facility] 2016-07-13 2016-07-13 Outpatient Rashaun Rosarioe rn [id number] 00:00:00 00:00:00 [facility] Oncology Oncology [facility] 2016-06-28 2016-06-28 Outpatient Rashaun Bañuelosjazmín n [id number] 00:00:00 00:00:00 [facility] Oncology Oncology [facility] 2016-06-27 2016-06-27 Outpatient [facility] n [id number] 00:00:00 00:00:00 [facility] Oncology Oncology [facility] 2016-06-23 2016-06-23 Outpatient [facility] n [id number] 00:00:00 00:00:00 [facility] Oncology Oncology [facility] 2016-06-22 2016-06-22 [id number]:00 00:00:00 Louie fernandez [facility] Oncology Oncology [facility] 2016-06-21 2016-06-21 Marlene Rosario [facility] [id number] 00:00:00 00:00:00 Dr. Louie Palma [facility] Oncology Oncology [facility] Social History Smoking Status Start Date Stop Date Current every day smoker 2020-04-06 00:00:00 2020-04-06 00:0 0:00 Social History Observation Description Sex Female Vital Signs Vital Name Observation Time Observation Value Comments BMI 2020-06-01 10:22:22 21.9500 BP travis 2020-06-01 10:22:22 70.0000 mm[Hg] Bdy height 2020-06-01 10:22:22 62.0000 [in_i] SaO2% BldA PulseOx 2020-06-01 10:22:22 97.0000 % Heart rate 2020-06-01 10:22:22 68.0000 /min Resp rate 2020-06-01 10:22:22 16.0000 /min BP sys 2020-06-01 10:22:22 100.0000 mm[Hg] Body temperature 2020-06-01 10:22:22 97.7000 [degF] Weight 2020-06-01 10:22:22 120.0000 [lb_av] BMI 2020-05-04 09:30:27 21.5100 BP travis 2020-05-04 09:30:27 63.0000 mm[Hg] Bdy height 2020-05-04 09:30:27 62.0000 [in_i] SaO2% BldA PulseOx 2020-05-04 09:30:27 97.0000 % Heart rate 2020-05-04 09:30:27 73.0000 /min Resp rate 2020-05-04 09:30:27 16.0000 /min BP sys 2020-05-04 09:30:27 103.0000 mm[Hg] Body temperature 2020-05-04 09:30:27 97.0000 [degF] Weight 2020-05-04 09:30:27 117.6000 [lb_av] BMI 2020-04-06 10:38:52 21.8000 BP travis 2020-04-06 10:38:52 58.0000 mm[Hg] Bdy height 2020-04-06 10:38:52 62.0000 [in_i] SaO2% BldA PulseOx 2020-04-06 10:38:52 97.0000 % Heart rate 2020-04-06 10:38:52 66.0000 /min Resp rate 2020-04-06 10:38:52 14.0000 /min BP sys 2020-04-06 10:38:52 102.0000 mm[Hg] Body temperature 2020-04-06 10:38:52 98.1000 [degF] Weight 2020-04-06 10:38:52 119.2000 [lb_av] BMI 2020-03-09 09:51:15 21.3600 BP travis 2020-03-09 09:51:15 57.0000 mm[Hg] Bdy height 2020-03-09 09:51:15 62.0000 [in_i] SaO2% BldA PulseOx 2020-03-09 09:51:15 97.0000 % Heart rate 2020-03-09 09:51:15 75.0000 /min Resp rate 2020-03-09 09:51:15 18.0000 /min BP sys 2020-03-09 09:51:15 94.0000 mm[Hg] Body temperature 2020-03-09 09:51:15 98.4000 [degF] Weight 2020-03-09 09:51:15 116.8000 [lb_av] BP travis 2020-02-10 10:19:43 67.0000 mm[Hg] Bdy height 2020-02-10 10:19:43 62.0000 [in_i] SaO2% BldA PulseOx 2020-02-10 10:19:43 96.0000 % Heart rate 2020-02-10 10:19:43 66.0000 /min Resp rate 2020-02-10 10:19:43 18.0000 /min BP sys 2020-02-10 10:19:43 101.0000 mm[Hg] Body temperature 2020-02-10 10:19:43 98.0000 [degF] Weight 2020-02-10 10:19:43 120.6000 [lb_av] BMI 2020-02-10 10:19:43 22.0600 BMI 2020-01-10 09:26:55 21.2500 BP travis 2020-01-10 09:26:55 59.0000 mm[Hg] Bdy height 2020-01-10 09:26:55 62.0000 [in_i] SaO2% BldA PulseOx 2020-01-10 09:26:55 98.0000 % Heart rate 2020-01-10 09:26:55 69.0000 /min Resp rate 2020-01-10 09:26:55 16.0000 /min BP sys 2020-01-10 09:26:55 95.0000 mm[Hg] Body temperature 2020-01-10 09:26:55 97.2000 [degF] Weight 2020-01-10 09:26:55 116.2000 [lb_av] BMI 2019-12-12 09:38:32 21.6600 BP travis 2019-12-12 09:38:32 57.0000 mm[Hg] Bdy height 2019-12-12 09:38:32 62.0000 [in_i] SaO2% BldA PulseOx 2019-12-12 09:38:32 97.0000 % Heart rate 2019-12-12 09:38:32 68.0000 /min Resp rate 2019-12-12 09:38:32 18.0000 /min BP sys 2019-12-12 09:38:32 101.0000 mm[Hg] Body temperature 2019-12-12 09:38:32 97.0000 [degF] Weight 2019-12-12 09:38:32 118.4000 [lb_av] BMI 2019-11-14 09:24:58 21.8800 BP travis 2019-11-14 09:24:58 65.0000 mm[Hg] Bdy height 2019-11-14 09:24:58 62.0000 [in_i] SaO2% BldA PulseOx 2019-11-14 09:24:58 97.0000 % Heart rate 2019-11-14 09:24:58 70.0000 /min Resp rate 2019-11-14 09:24:58 18.0000 /min BP sys 2019-11-14 09:24:58 114.0000 mm[Hg] Body temperature 2019-11-14 09:24:58 96.6000 [degF] Weight 2019-11-14 09:24:58 119.6000 [lb_av] BMI 2019-10-17 09:34:18 21.9900 BP travis 2019-10-17 09:34:18 76.0000 mm[Hg] Bdy height 2019-10-17 09:34:18 62.0000 [in_i] SaO2% BldA PulseOx 2019-10-17 09:34:18 98.0000 % Heart rate 2019-10-17 09:34:18 81.0000 /min Resp rate 2019-10-17 09:34:18 16.0000 /min BP sys 2019-10-17 09:34:18 128.0000 mm[Hg] Body temperature 2019-10-17 09:34:18 97.4000 [degF] Weight 2019-10-17 09:34:18 120.2000 [lb_av] BMI 2019-07-25 10:58:56 23.2700 BP travis 2019-07-25 10:58:56 55.0000 mm[Hg] Bdy height 2019-07-25 10:58:56 62.0000 [in_i] SaO2% BldA PulseOx 2019-07-25 10:58:56 98.0000 % Heart rate 2019-07-25 10:58:56 68.0000 /min Resp rate 2019-07-25 10:58:56 16.0000 /min BP sys 2019-07-25 10:58:56 100.0000 mm[Hg] Body temperature 2019-07-25 10:58:56 96.8000 [degF] Weight 2019-07-25 10:58:56 127.2000 [lb_av] BMI 2019-06-27 09:59:28 23.2700 BP travis 2019-06-27 09:59:28 59.0000 mm[Hg] Bdy height 2019-06-27 09:59:28 62.0000 [in_i] SaO2% BldA PulseOx 2019-06-27 09:59:28 96.0000 % Heart rate 2019-06-27 09:59:28 75.0000 /min Resp rate 2019-06-27 09:59:28 20.0000 /min BP sys 2019-06-27 09:59:28 112.0000 mm[Hg] Body temperature 2019-06-27 09:59:28 97.2000 [degF] Weight 2019-06-27 09:59:28 127.2000 [lb_av] BMI 2019-05-30 09:31:04 23.1200 BP travis 2019-05-30 09:31:04 61.0000 mm[Hg] Bdy height 2019-05-30 09:31:04 62.0000 [in_i] SaO2% BldA PulseOx 2019-05-30 09:31:04 98.0000 % Heart rate 2019-05-30 09:31:04 67.0000 /min Resp rate 2019-05-30 09:31:04 20.0000 /min BP sys 2019-05-30 09:31:04 107.0000 mm[Hg] Body temperature 2019-05-30 09:31:04 97.2000 [degF] Weight 2019-05-30 09:31:04 126.4000 [lb_av] BMI 2019-05-02 11:23:54 23.6300 BP travis 2019-05-02 11:23:54 63.0000 mm[Hg] Bdy height 2019-05-02 11:23:54 62.0000 [in_i] SaO2% BldA PulseOx 2019-05-02 11:23:54 97.0000 % Heart rate 2019-05-02 11:23:54 71.0000 /min Resp rate 2019-05-02 11:23:54 16.0000 /min BP sys 2019-05-02 11:23:54 126.0000 mm[Hg] Body temperature 2019-05-02 11:23:54 96.1000 [degF] Weight 2019-05-02 11:23:54 129.2000 [lb_av] BMI 2019-04-05 11:27:09 23.8100 BP travis 2019-04-05 11:27:09 60.0000 mm[Hg] Bdy height 2019-04-05 11:27:09 62.0000 [in_i] SaO2% BldA PulseOx 2019-04-05 11:27:09 98.0000 % Heart rate 2019-04-05 11:27:09 65.0000 /min Resp rate 2019-04-05 11:27:09 16.0000 /min BP sys 2019-04-05 11:27:09 98.0000 mm[Hg] Body temperature 2019-04-05 11:27:09 96.7000 [degF] Weight 2019-04-05 11:27:09 130.2000 [lb_av] BMI 2019-03-07 14:30:40 24.2500 BP travis 2019-03-07 14:30:40 57.0000 mm[Hg] Bdy height 2019-03-07 14:30:40 62.0000 [in_i] SaO2% BldA PulseOx 2019-03-07 14:30:40 98.0000 % Heart rate 2019-03-07 14:30:40 62.0000 /min Resp rate 2019-03-07 14:30:40 16.0000 /min BP sys 2019-03-07 14:30:40 99.0000 mm[Hg] Body temperature 2019-03-07 14:30:40 97.4000 [degF] Weight 2019-03-07 14:30:40 132.6000 [lb_av] BMI 2019-01-16 11:07:41 24.2500 BP travis 2019-01-16 11:07:41 61.0000 mm[Hg] Bdy height 2019-01-16 11:07:41 62.0000 [in_i] SaO2% BldA PulseOx 2019-01-16 11:07:41 98.0000 % Heart rate 2019-01-16 11:07:41 65.0000 /min Resp rate 2019-01-16 11:07:41 16.0000 /min BP sys 2019-01-16 11:07:41 103.0000 mm[Hg] Body temperature 2019-01-16 11:07:41 96.8000 [degF] Weight 2019-01-16 11:07:41 132.6000 [lb_av] BMI 2018-12-19 10:45:30 24.4400 BP travis 2018-12-19 10:45:30 61.0000 mm[Hg] Bdy height 2018-12-19 10:45:30 62.0000 [in_i] SaO2% BldA PulseOx 2018-12-19 10:45:30 95.0000 % Heart rate 2018-12-19 10:45:30 62.0000 /min Resp rate 2018-12-19 10:45:30 16.0000 /min BP sys 2018-12-19 10:45:30 107.0000 mm[Hg] Body temperature 2018-12-19 10:45:30 96.7000 [degF] Weight 2018-12-19 10:45:30 133.6000 [lb_av] BMI 2018-12-05 11:14:15 24.5100 BP travis 2018-12-05 11:14:15 58.0000 mm[Hg] Bdy height 2018-12-05 11:14:15 62.0000 [in_i] SaO2% BldA PulseOx 2018-12-05 11:14:15 97.0000 % Heart rate 2018-12-05 11:14:15 72.0000 /min Resp rate 2018-12-05 11:14:15 16.0000 /min BP sys 2018-12-05 11:14:15 101.0000 mm[Hg] Body temperature 2018-12-05 11:14:15 97.4000 [degF] Weight 2018-12-05 11:14:15 134.0000 [lb_av] BP travis 2018-11-21 10:53:51 61.0000 mm[Hg] Bdy height 2018-11-21 10:53:51 62.0000 [in_i] BP sys 2018-11-21 10:53:51 100.0000 mm[Hg] BMI 2018-11-21 10:29:03 24.1400 BP travis 2018-11-21 10:29:03 52.0000 mm[Hg] Bdy height 2018-11-21 10:29:03 62.0000 [in_i] Heart rate 2018-11-21 10:29:03 70.0000 /min Resp rate 2018-11-21 10:29:03 16.0000 /min BP sys 2018-11-21 10:29:03 95.0000 mm[Hg] Body temperature 2018-11-21 10:29:03 96.1000 [degF] Weight 2018-11-21 10:29:03 132.0000 [lb_av] BMI 2018-10-24 11:10:04 24.5500 BP travis 2018-10-24 11:10:04 54.0000 mm[Hg] Bdy height 2018-10-24 11:10:04 62.0000 [in_i] SaO2% BldA PulseOx 2018-10-24 11:10:04 97.0000 % Heart rate 2018-10-24 11:10:04 71.0000 /min Resp rate 2018-10-24 11:10:04 16.0000 /min BP sys 2018-10-24 11:10:04 104.0000 mm[Hg] Body temperature 2018-10-24 11:10:04 97.2000 [degF] Weight 2018-10-24 11:10:04 134.2000 [lb_av] BMI 2018-09-26 09:58:49 24.9800 BP travis 2018-09-26 09:58:49 44.0000 mm[Hg] Bdy height 2018-09-26 09:58:49 62.0000 [in_i] SaO2% BldA PulseOx 2018-09-26 09:58:49 96.0000 % Heart rate 2018-09-26 09:58:49 67.0000 /min Resp rate 2018-09-26 09:58:49 16.0000 /min BP sys 2018-09-26 09:58:49 92.0000 mm[Hg] Body temperature 2018-09-26 09:58:49 95.8000 [degF] Weight 2018-09-26 09:58:49 136.6000 [lb_av] BMI 2018-08-29 11:12:38 24.7700 BP travis 2018-08-29 11:12:38 57.0000 mm[Hg] Bdy height 2018-08-29 11:12:38 62.0000 [in_i] SaO2% BldA PulseOx 2018-08-29 11:12:38 96.0000 % Heart rate 2018-08-29 11:12:38 65.0000 /min Resp rate 2018-08-29 11:12:38 20.0000 /min BP sys 2018-08-29 11:12:38 89.0000 mm[Hg] Body temperature 2018-08-29 11:12:38 96.8000 [degF] Weight 2018-08-29 11:12:38 135.4000 [lb_av] BMI 2018-08-01 09:48:52 25.0900 BP travis 2018-08-01 09:48:52 55.0000 mm[Hg] Bdy height 2018-08-01 09:48:52 62.0000 [in_i] SaO2% BldA PulseOx 2018-08-01 09:48:52 96.0000 % Heart rate 2018-08-01 09:48:52 62.0000 /min Resp rate 2018-08-01 09:48:52 16.0000 /min BP sys 2018-08-01 09:48:52 99.0000 mm[Hg] Body temperature 2018-08-01 09:48:52 96.1000 [degF] Weight 2018-08-01 09:48:52 137.2000 [lb_av] BMI 2018-07-04 09:58:19 24.8400 BP travis 2018-07-04 09:58:19 73.0000 mm[Hg] Bdy height 2018-07-04 09:58:19 62.0000 [in_i] SaO2% BldA PulseOx 2018-07-04 09:58:19 98.0000 % Heart rate 2018-07-04 09:58:19 77.0000 /min Resp rate 2018-07-04 09:58:19 18.0000 /min BP sys 2018-07-04 09:58:19 128.0000 mm[Hg] Body temperature 2018-07-04 09:58:19 98.3000 [degF] Weight 2018-07-04 09:58:19 135.8000 [lb_av] BMI 2018-06-06 10:40:20 25.2000 BP travis 2018-06-06 10:40:20 54.0000 mm[Hg] Bdy height 2018-06-06 10:40:20 62.0000 [in_i] Heart rate 2018-06-06 10:40:20 69.0000 /min Resp rate 2018-06-06 10:40:20 16.0000 /min BP sys 2018-06-06 10:40:20 106.0000 mm[Hg] Body temperature 2018-06-06 10:40:20 96.2000 [degF] Weight 2018-06-06 10:40:20 137.8000 [lb_av] BMI 2018-05-09 10:18:26 25.2000 BP travis 2018-05-09 10:18:26 58.0000 mm[Hg] Bdy height 2018-05-09 10:18:26 62.0000 [in_i] SaO2% BldA PulseOx 2018-05-09 10:18:26 97.0000 % Heart rate 2018-05-09 10:18:26 67.0000 /min Resp rate 2018-05-09 10:18:26 18.0000 /min BP sys 2018-05-09 10:18:26 100.0000 mm[Hg] Body temperature 2018-05-09 10:18:26 96.4000 [degF] Weight 2018-05-09 10:18:26 137.8000 [lb_av] BMI 2018-04-11 09:25:41 26.0100 BP travis 2018-04-11 09:25:41 65.0000 mm[Hg] Bdy height 2018-04-11 09:25:41 62.0000 [in_i] SaO2% BldA PulseOx 2018-04-11 09:25:41 97.0000 % Heart rate 2018-04-11 09:25:41 62.0000 /min Resp rate 2018-04-11 09:25:41 16.0000 /min BP sys 2018-04-11 09:25:41 109.0000 mm[Hg] Body temperature 2018-04-11 09:25:41 97.1000 [degF] Weight 2018-04-11 09:25:41 142.2000 [lb_av] BMI 2018-03-13 10:24:52 26.1600 BP travis 2018-03-13 10:24:52 63.0000 mm[Hg] Bdy height 2018-03-13 10:24:52 62.0000 [in_i] SaO2% BldA PulseOx 2018-03-13 10:24:52 97.0000 % Heart rate 2018-03-13 10:24:52 77.0000 /min Resp rate 2018-03-13 10:24:52 16.0000 /min BP sys 2018-03-13 10:24:52 117.0000 mm[Hg] Body temperature 2018-03-13 10:24:52 97.7000 [degF] Weight 2018-03-13 10:24:52 143.0000 [lb_av] BMI 2018-01-16 10:01:04 27.0700 BP travis 2018-01-16 10:01:04 66.0000 mm[Hg] Bdy height 2018-01-16 10:01:04 62.0000 [in_i] Heart rate 2018-01-16 10:01:04 65.0000 /min Resp rate 2018-01-16 10:01:04 20.0000 /min BP sys 2018-01-16 10:01:04 121.0000 mm[Hg] Body temperature 2018-01-16 10:01:04 97.0000 [degF] Weight 2018-01-16 10:01:04 148.0000 [lb_av] BMI 2017-12-19 10:35:26 26.9600 BP travis 2017-12-19 10:35:26 62.0000 mm[Hg] Bdy height 2017-12-19 10:35:26 62.0000 [in_i] Heart rate 2017-12-19 10:35:26 71.0000 /min Resp rate 2017-12-19 10:35:26 16.0000 /min BP sys 2017-12-19 10:35:26 98.0000 mm[Hg] Body temperature 2017-12-19 10:35:26 97.5000 [degF] Weight 2017-12-19 10:35:26 147.4000 [lb_av] BMI 2017-11-21 09:48:42 27.2500 BP travis 2017-11-21 09:48:42 60.0000 mm[Hg] Bdy height 2017-11-21 09:48:42 62.0000 [in_i] Heart rate 2017-11-21 09:48:42 73.0000 /min Resp rate 2017-11-21 09:48:42 18.0000 /min BP sys 2017-11-21 09:48:42 107.0000 mm[Hg] Body temperature 2017-11-21 09:48:42 97.1000 [degF] Weight 2017-11-21 09:48:42 149.0000 [lb_av] BMI 2017-10-24 14:15:00 27.0000 BP travis 2017-10-24 14:15:00 67.0000 mm[Hg] Bdy height 2017-10-24 14:15:00 62.0000 [in_i] Heart rate 2017-10-24 14:15:00 69.0000 /min Resp rate 2017-10-24 14:15:00 16.0000 /min BP sys 2017-10-24 14:15:00 109.0000 mm[Hg] Body temperature 2017-10-24 14:15:00 97.7000 [degF] Weight 2017-10-24 14:15:00 147.6000 [lb_av] BMI 2017-09-25 10:04:52 27.4700 BP travis 2017-09-25 10:04:52 60.0000 mm[Hg] Bdy height 2017-09-25 10:04:52 62.0000 [in_i] Heart rate 2017-09-25 10:04:52 72.0000 /min Resp rate 2017-09-25 10:04:52 16.0000 /min BP sys 2017-09-25 10:04:52 106.0000 mm[Hg] Body temperature 2017-09-25 10:04:52 97.5000 [degF] Weight 2017-09-25 10:04:52 150.2000 [lb_av] BMI 2017-08-28 14:08:46 27.1100 BP travis 2017-08-28 14:08:46 57.0000 mm[Hg] Bdy height 2017-08-28 14:08:46 62.0000 [in_i] SaO2% BldA PulseOx 2017-08-28 14:08:46 95.0000 % Heart rate 2017-08-28 14:08:46 84.0000 /min Resp rate 2017-08-28 14:08:46 16.0000 /min BP sys 2017-08-28 14:08:46 90.0000 mm[Hg] Body temperature 2017-08-28 14:08:46 97.6000 [degF] Weight 2017-08-28 14:08:46 148.2000 [lb_av] BMI 2017-07-24 10:45:01 27.2900 BP travis 2017-07-24 10:45:01 57.0000 mm[Hg] Bdy height 2017-07-24 10:45:01 62.0000 [in_i] Heart rate 2017-07-24 10:45:01 69.0000 /min Resp rate 2017-07-24 10:45:01 20.0000 /min BP sys 2017-07-24 10:45:01 101.0000 mm[Hg] Body temperature 2017-07-24 10:45:01 97.5000 [degF] Weight 2017-07-24 10:45:01 149.2000 [lb_av] BMI 2017-07-07 11:29:19 27.5100 BP travis 2017-07-07 11:29:19 69.0000 mm[Hg] Bdy height 2017-07-07 11:29:19 62.0000 [in_i] Heart rate 2017-07-07 11:29:19 71.0000 /min Resp rate 2017-07-07 11:29:19 18.0000 /min BP sys 2017-07-07 11:29:19 116.0000 mm[Hg] Body temperature 2017-07-07 11:29:19 97.0000 [degF] Weight 2017-07-07 11:29:19 150.4000 [lb_av] BMI 2017-07-03 14:20:40 27.1400 BP travis 2017-07-03 14:20:40 62.0000 mm[Hg] Bdy height 2017-07-03 14:20:40 62.0000 [in_i] Heart rate 2017-07-03 14:20:40 68.0000 /min Resp rate 2017-07-03 14:20:40 20.0000 /min BP sys 2017-07-03 14:20:40 122.0000 mm[Hg] Body temperature 2017-07-03 14:20:40 97.2000 [degF] Weight 2017-07-03 14:20:40 148.4000 [lb_av] BMI 2017-03-02 09:29:10 28.2000 BP travis 2017-03-02 09:29:10 63.0000 mm[Hg] Bdy height 2017-03-02 09:29:10 62.0000 [in_i] Heart rate 2017-03-02 09:29:10 74.0000 /min Resp rate 2017-03-02 09:29:10 18.0000 /min BP sys 2017-03-02 09:29:10 103.0000 mm[Hg] Body temperature 2017-03-02 09:29:10 97.5000 [degF] Weight 2017-03-02 09:29:10 154.2000 [lb_av] BMI 2016-09-01 09:06:08 27.9800 BP travis 2016-09-01 09:06:08 68.0000 mm[Hg] Bdy height 2016-09-01 09:06:08 62.0000 [in_i] Heart rate 2016-09-01 09:06:08 79.0000 /min Resp rate 2016-09-01 09:06:08 16.0000 /min BP sys 2016-09-01 09:06:08 117.0000 mm[Hg] Body temperature 2016-09-01 09:06:08 97.3000 [degF] Weight 2016-09-01 09:06:08 153.0000 [lb_av] BMI 2016-08-05 08:39:11 28.3100 BP travis 2016-08-05 08:39:11 69.0000 mm[Hg] Bdy height 2016-08-05 08:39:11 62.0000 [in_i] Heart rate 2016-08-05 08:39:11 83.0000 /min Resp rate 2016-08-05 08:39:11 18.0000 /min BP sys 2016-08-05 08:39:11 110.0000 mm[Hg] Body temperature 2016-08-05 08:39:11 95.8000 [degF] Weight 2016-08-05 08:39:11 154.8000 [lb_av] BMI 2016-07-29 08:48:08 28.2400 BP travis 2016-07-29 08:48:08 74.0000 mm[Hg] Bdy height 2016-07-29 08:48:08 62.0000 [in_i] Heart rate 2016-07-29 08:48:08 87.0000 /min Resp rate 2016-07-29 08:48:08 20.0000 /min BP sys 2016-07-29 08:48:08 132.0000 mm[Hg] Body temperature 2016-07-29 08:48:08 96.2000 [degF] Weight 2016-07-29 08:48:08 154.4000 [lb_av] BMI 2016-07-22 08:36:21 28.1300 BP travis 2016-07-22 08:36:21 69.0000 mm[Hg] Bdy height 2016-07-22 08:36:21 62.0000 [in_i] Heart rate 2016-07-22 08:36:21 83.0000 /min Resp rate 2016-07-22 08:36:21 20.0000 /min BP sys 2016-07-22 08:36:21 121.0000 mm[Hg] Body temperature 2016-07-22 08:36:21 96.9000 [degF] Weight 2016-07-22 08:36:21 153.8000 [lb_av] BMI 2016-07-13 09:10:02 28.3100 BP travis 2016-07-13 09:10:02 64.0000 mm[Hg] Bdy height 2016-07-13 09:10:02 62.0000 [in_i] Heart rate 2016-07-13 09:10:02 84.0000 /min Resp rate 2016-07-13 09:10:02 20.0000 /min BP sys 2016-07-13 09:10:02 101.0000 mm[Hg] Body temperature 2016-07-13 09:10:02 97.4000 [degF] Weight 2016-07-13 09:10:02 154.8000 [lb_av] BMI 2016-06-21 10:22:39 28.5000 BP travis 2016-06-21 10:22:39 63.0000 mm[Hg] Bdy height 2016-06-21 10:22:39 62.0000 [in_i] Heart rate 2016-06-21 10:22:39 80.0000 /min Resp rate 2016-06-21 10:22:39 18.0000 /min BP sys 2016-06-21 10:22:39 109.0000 mm[Hg] Body temperature 2016-06-21 10:22:39 97.5000 [degF] Weight 2016-06-21 10:22:39 155.8000 [lb_av]
--- NOTE | 2020-06-18 09:44 | RADIOLOGY REPORT (SQ) ---
EXAM DESCRIPTION: CT CHEST WITH; CT ABD/PELVIS WITH IV ORAL IMAGES COMPLETED DATE/TIME: 06/18/2020 8:09 am REASON FOR STUDY: COLON CANCER C18.9 MALIGNANT NEOPLASM OF COLON, UNSPECIFIED COMPARISON: 07/05/2017, 06/20/2019, 10/24/2019 CONTRAST TYPE AND DOSE: contrast/concentration: Isovue 350.00 mmol/ml; Total Contrast Delivered: 65. 0 ml; Total Saline Delivered: 39.9 ml RENAL FUNCTION: Creatinine 0.8 TECHNIQUE: CT scan of the chest performed using helical scanning technique with dynamic intravenous contrast injection. Images reviewed with lung, soft tissue and bone windows. Reconstructed coronal a nd sagittal MPR images reviewed. All images stored on PACS. CT scan of the abdomen and pelvis performed with intravenous and with oral contrastusing helical scan erin technique with dynamic intravenous contrast injection. Images reviewed with lung, soft tissue a nd bone windows. Reconstructed coronal and sagittal MPR images reviewed. Delayed images for evaluat ion of the urinary system also acquired and evaluated. All images stored on PACS. All CT scanners at this facility use dose modulation, iterative reconstruction, and/or weight based d osing when appropriate to reduce radiation dose to as low as reasonably achievable (ALARA). [facility]: Dose Right [facility]: CareDose [facility]: Dose Right [facility]: Teradose 4D [facility]: [employer] RADIATION DOSE: CT Rad equipment meets quality standard of care and radiation dose reduction techniq ues were employed. CTDIvol: 4.4 - 4.7 mGy. DLP: 616 mGy-cm. . LIMITATIONS: None. FINDINGS: CHEST: LUNGS AND PLEURA: No suspicious nodules or masses. Biapical pleural/ parenchymal scarring. No focal consolidation. No pleural effusion. No pneumothorax. Background of centrilobular emphysematous ch lauren. HILAR AND MEDIASTINAL STRUCTURES: No identified masses or abnormal nodes. HEART AND VASCULAR STRUCTURES: Ectatic thoracic aorta without aneurysm or dissection. Prominent pulm onary arteries without filling defects. No pericardial effusion. Coronary artery vascular calcifica tions are demonstrated. HARDWARE: None. THYROID AND OTHER SOFT TISSUES: No masses. No adenopathy. BONES: No acute findings. Chronic posttraumatic changes of the left 6th rib. Degenerative changes o f the spine. No suspicious lytic or blastic osseous lesions. OTHER: No other significant finding. ABDOMEN AND PELVIS: LIVER: Normal size. No masses. Mild central biliary dilatation. SPLEEN: Normal size. No focal lesions. PANCREAS: No masses. No significant calcifications. No adjacent inflammation or peripancreatic fluid collections. Pancreatic duct not dilated. GALLBLADDER: Surgically absent. ADRENAL GLANDS: No significant masses or asymmetry. RIGHT KIDNEY AND URETER: No solid masses. No significant calcification. No hydronephrosis or hydroure ter. LEFT KIDNEY AND URETER: No solid masses. No significant calcification. No hydronephrosis or hydrouret er. AORTA AND VESSELS: Atherosclerotic vascular calcifications to include the major visceral branches. N o aneurysm or dissection. RETROPERITONEUM: No retroperitoneal adenopathy, hemorrhage or masses. BOWEL AND PERITONEAL CAVITY: Status post partial colectomy without evidence of anastomotic leak. No obstruction. No mass. APPENDIX: Surgically absent. ABDOMINAL WALL: No masses. No hernias. PELVIS: The bladder is largely decompressed. No free fluid or pelvic mass demonstrated. BONES: Re- demonstration of L3/4 spinal fusion and L5/S1 disc replacement. Stable alignment. Backgr ound of multilevel spondylotic changes. OTHER: No other significant finding. IMPRESSION: No evidence of recurrent or metastatic disease. Stable CT appearance of the chest, abdomen, and pelvis with chronic and incidental findings as detail ed above. TECHNICAL DOCUMENTATION: JOB ID: [id number] Quality ID # [id number]: Final reports with documentation of one or more dose reduction techniques (e.g., Au tomated exposure control, adjustment of the mA and/or kV according to patient size, use of iterative reconstruction technique) 2010 [employer]- All Rights Reserved Reading location - IP/workstation name: [email or web address]
== END ==
LOC: RAD 07:34
PROVIDERS: ATTEND Internal Medicine
DX: C18.9 Malignant neoplasm of colon, unspecified (principal)
CPT/HCPCS: 71260; 74177; 82565